=== PATIENT | female | born 1935 | race Caucasian/White ===

== ENCOUNTER 2016-11-12 14:21 | Inpatient (IN) | payer MEDICARE ==
[~2016-11-12] VITALS: Ht 149.9 cm; Wt 77.1 kg
[~2016-11-12 14:21] MED LIST: CEPH-512 PO; LACT10SO PO
[2016-11-12 14:33] VITALS: BP 153/72; PULSE 102; RESP 24; O2SAT 96
--- NOTE | 2016-11-12 16:17 | ED.REPORT ---
HPI-General Illness Date of Service Nov 12, 2016 ED Provider: Devan Francois MD Pt is a 81 y/o female w/ a hx of well-controlled schizophrenia, HTN, HLD, depression, presenting to the ED via EMS with her daughter due to generalized weakness and possible fall which occurred today. The patient does not know why she is here and is asymptomatic. The patient spoke with her daughter last night normally. This morning, her daughter called but didn't answer. She tried to call again around 14:00 but she didn't answer again. She went over to find the patient sitting on her bed. She said that she had fallen between a night stand and her bed. She was a bit more confused than normal. She was very shaky when she helped her stand and therefore an ambulance was called. The patient also hasn't taken her medications since Monday and she usually takes these as directed. The patient normally ambulates with a cane and does not have a history of instability or falls. Most of history obtained via the daughter. CODE STATUS: has not been discussed Nursing Notes Stated Complaint: WEAKNESS Chief Complaint: General Complaint Nursing Notes Reviewed: Yes Allergies: Coded Allergies: No Known Allergies (Verified , 04/28/06) Scheduled Cephalexin (Keflex) 500 Mg Capsule 250 MG PO QID Lactulose (Lactulose) 10 Gm/15 Ml Solution 10 GM PO ACHS 2-3 times a day, titrate to 2-3 soft bowel movements daily General Time Seen by MD: 15:55 Chief Complaint Weakness Hx Obtained From: Patient, Daughter, EMS Arrived By: Ambulance Sudden in Onset?: No Onset Occurred: 5 - 8 hours ago Symptom Duration: Since onset Severity: Current: No pain currently Severity: Maximum: No pain Similar Sx Previous: No Past Medical History Past Medical History Schizophrenia - well controlled Reports: Hyperlipidemia, Hypertension Reports: Depression Past Surgical History recent cataract surgery Smoking History Never Smoker Social History Other Social History: Good social support, Lives alone, Local resident Ambulatory Status Cane Review of Systems ROS limited due to mental status Full Review of Systems Constitutional: Reports: Weakness - generalized Neurologic: Reports: Confusion Complete sys rev & neg: except as marked. Physical Exam Vital Signs Vital Signs Date Time Temp Pulse Resp B/P Pulse Ox O2 Delivery O2 Flow Rate FiO2 11/12/16 17:24 36.7 93 22 146/68 100 Room Air 11/12/16 14:33 37.0 102 24 153/72 96 Room Air Initial VS: Reviewed, Vital signs abnormal Head / Eyes: Atraumatic, Normocephalic, PERRL ENT: Mucous membranes moist, Conjunctiva normal, No scleral icterus Neck: Supple, Non-tender, Full range of motion Respiratory: Breath sounds normal, Clear to auscultation, No respiratory distress Cardiovascular: Regular rate & rhythm, Heart sounds normal, Intact distal pulses Abdomen / GI: Soft, Non-tender Skin: Warm, Dry, No cyanosis General/Constitutional: Awake, Alert, No acute distress, Cooperative, Not toxic appearing Pleasantly confused No signs of intoxication or withdrawal Upper Extremities Upper Extremity / MS: Full range of motion, No swelling, Non-tender, No deformity, Neurologic intact, Vascular intact, No ligamentous injury, Tendon function NL Faint erythema over right elbow No clinical signs of fracture Lower Extremity / Pelvis / MS: Full range of motion, No swelling, Non-tender, No deformity, Neurologic intact, Vascular intact, No ligamentous injury, Tendon function NL Faint erythema over knees bilaterally No clinical signs of effusion or fracture Neurologic: Speech NL, No motor deficits, No sensory deficits Pleasantly confused No focal deficits Psychiatric: Affect NL, Mood NL Very limited insight Interpretation & Diagnostics Lab Results Interpretation Result Diagram: 11/12/16 1648 11/12/16 1648 Test 11/12/16 16:48 11/12/16 17:58 11/12/16 19:00 White Blood Count 17.5th/mm3 (3.8-10.1) Red Blood Count 4.55mil/mm3 (3.90-5.20) Hemoglobin 13.8g/dL (12.0-15.6) Hematocrit 40.8% (35.0-46.0) Mean Corpuscular Volume 89.7fL (81-100) Mean Corpuscular Hemoglobin 30.3pg (27.0-35.0) Mean Corpuscular Hemoglobin Concent 33.8% (32.0-37.0) Red Cell Distribution Width 12.7% (12.3-15.4) Platelet Count 233bil/L (150-400) Neutrophils (%) (Auto) 74.0% (40-74) Lymphocytes (%) (Auto) 9.6% (14-46) Monocytes (%) (Auto) 16.0% (4-12) Eosinophils (%) (Auto) 0% (0-5) Basophils (%) (Auto) 0.1% (0-3) Sodium Level 143mEq/L (134-144) Potassium Level 3.3mEq/L (3.5-5.2) Chloride Level 99mEq/L (97-108) Carbon Dioxide Level 21mmol/L (18-29) Blood Urea Nitrogen 38mg/dL (8-27) Creatinine 1.97mg/dL (0.57-1.00) Estimat Glomerular Filtration Rate 35mL/min (>59) Glucose Level 130mg/dL (60-99) Calcium Level 9.5mg/dL (8.5-10.1) Magnesium Level 2.3mg/dL (1.6-2.6) Total Bilirubin 0.6mg/dL (0.0-1.2) Aspartate Amino Transf (AST/SGOT) 831U/L (0-50) Alanine Aminotransferase (ALT/SGPT) 157U/L (0-32) Alkaline Phosphatase 86U/L (25-165) Total Protein 8.5g/dL (6.4-8.4) Albumin 4.5g/dL (3.4-5.0) Hold [place] Top Tube Received (Received) Urine Color Yellow (YELLOW) Urine Appearance Hazy (CLEAR,HAZY) Urine pH 6.5 (5.0-8.0) Urine Specific [place] 1.025 (1.003-1.035) Urine Protein 300mg/dL (NEG,TRACE) Urine Glucose (UA) 100mg/dL (NEGATIVE) Urine Ketones Tracemg/dL (NEGATIVE) Urine Occult Blood Large (NEGATIVE) Urine Nitrite Positive (NEGATIVE) Urine Bilirubin Negative (NEGATIVE) Urine Urobilinogen 1.0mg/dL (NORMAL) Urine Leukocyte Esterase Trace (NEGATIVE) Urine RBC 0-2/hpf (0-2) Urine WBC 0-5/hpf (0-5) Urine Epithelial Cells None/hpf (NONE-MOD) Urine Crystals None seen (NONE SEEN) Urine Bacteria Few/hpf (NONE-FEW) Urine Hyaline Casts None/lpf (NONE) Urine Granular Casts None seen (NONE SEEN) Urine Waxy Casts None seen (NONE SEEN) Urine Red Blood Cell Casts None seen (NONE SEEN) Urine White Blood Cell Casts None seen (NONE SEEN) Urine Mucus None seen (None Seen) Urine Trichomonas None seen (NONE SEEN) Urine Yeast None (NONE SEEN) Urinalysis Comment None Urine Culture Reflexed Indicated Total Creatine Kinase > 71018U/L (21-215) Troponin T 0.058ug/L (0.0-0.011) Lab Results Interpretation: Received positive leukocytosis CMP renal insufficiency, ALT abnormalities-new compared to 2016 Troponin #1 elevated UA pending Blood cultures pending ECG Interpretation ECG Interpretation: Sinus rhythm rate 97 Nonspecific T wave changes Probable LVH Time: 17:05 Interpreted by: ED physician Normal ECG Interpretation: No acute ischemic changes ECG Interpretation: Sinus rhythm rate 95 Repeat EKG nl Time: 18:12 Interpreted by: ED physician Normal ECG Interpretation: No acute ischemic changes X-Ray Chest Interpretation Chest Xray Interpretation: IMPRESSION: No acute disease. Dictated by: Thom Bolton M.D. on 11/12/2016 at 17:03 Approved by: Thom Bolton M.D. on 11/12/2016 at 17:04 View: Portable, 1 view Interpretation / Wet Read by: Interpret - Radiologist CT Head Interpretation IMPRESSION: No acute intracranial process. Dictated by: Thom Bolton M.D. on 11/12/2016 at 17:41 Approved by: Thom Bolton M.D. on 11/12/2016 at 17:44 Study: Head CT no contrast Interpretation / Wet Read by: Interpret - Radiologist Re-Eval/Medical Decision Med Decision/Clinical Course 81-year-old female he was not answering a phone calls from family members, came over and found her in her underwear having fallen. It is unclear exactly how long she been down. She had some redness or elbow knee. It did look like she had hit her head. She is more confused than usual. Furthermore while the patient lives independently, she she is responsible for medications such received in a blister pack-and is notable that the patient had not taken any of her medications over the past 5 days. On top of this when the family tried to get her up she is extremely unsteady, and that was a bit unusual-therefore 911 was called. The patient has no complaints, but is confused and cannot provide any useful history. There is some dementia, but this is somewhat worse. Workup was pursued here. No traumatic injuries were identified on workup. I do not appreciate clinical signs of fractures injury to extremities, but a brain CT was obtained negative. Blood work is notable for leukocytosis, initially troponin is elevated but is May difficulty his creatinine is elevated , and Achilles unclear.. EKG is without ischemic change. However at this point the plan is admission for continued evaluation and management-before meals overall initiating events remain a bit unclear, but the patient is altered, with renal insufficiency, normal LFTs abnormal troponin and is unsafe for discharge. Source of Hx: Old records Time of Eval: 17:04 Re-Evaluation/Progress Note: Pt rechecked. Informed pt of need for admission. Pt understands and agrees with plan for admission. All questions addressed. Consultation : Referral / Consult Name: Chucky Herrera MD Call Returned at: 19:20 Runner Out: Will see patient, Agrees with eval, Agrees with plan, Accepts admit Counseled Regarding: Diagnosis, Lab results, Need for admission Discharge & Departure Primary Impression: Altered mental status Altered mental status type: unspecified Qualified Code: R41.82 - Altered mental status, unspecified Additional Impressions: Generalized weakness Fall Encounter type: initial encounter Qualified Code: W19.XXXA - Unspecified fall, initial encounter Acute kidney injury Abnormal liver function tests Elevated troponin Disposition: ADMITTED TO HOSPITAL (ERASED) Discharge Condition All VS Reviewed: Yes Condition: Stable Referrals: Derian King MD (PCP) Scribe Attestation Portions of this note were transcribed by Jordan Jeter. I, Dr. Francois personally performed the history, physical exam and medical decision-making; I reviewed and confirmed the accuracy of the information in the transcribed note. copies to: Derian King MD, Matthew F MD Nov 12, 2016 16:17 JORDAN JETER Nov 12, 2016 16:24 Ifrah Saucedo Nov 12, 2016 22:09
[2016-11-12 17:05] LABS: BASOPHILS % (AUTO) 0.1 % (0-3); EOSINOPHILS % (AUTO) 0 % (0-5); Mean Corpuscular Hemoglobin 30.3 pg (27.0-35.0); Mean Corpuscular Volume 89.7 fL (81-100); Platelet Count 233 bil/L (150-400)
--- NOTE | 2016-11-12 17:06 | DRSVH ---
PROCEDURE: X-RAY CHEST ONE VIEW, PORTABLE ([id number]) INDICATIONS: Fall, weakness TECHNIQUE: One view of the chest was acquired. COMPARISON: None. FINDINGS: Surgical changes and devices: None. Lungs and pleura: No pleural effusions or pneumothorax. Lungs are clear. Low lung volumes. Promine nt right perihilar opacity likely pulmonary mass which are Mediastinum: Mediastinal contours appear normal. Heart size is normal. Bones and chest wall: No suspicious bony lesions. Overlying soft tissues appear unremarkable. IMPRESSION: No acute disease. Dictated by: Thom Bolton M.D. on 11/12/2016 at 17:03 Approved by: Thom Bolton M.D. on 11/12/2016 at 17:04
[2016-11-12 17:24] VITALS: BP 146/68; PULSE 93; RESP 22; O2SAT 100
[2016-11-12 17:44] LABS: Magnesium 2.3 mg/dL (1.6-2.6)
[2016-11-12 17:46] LABS: TROPONIN T 0.05 ug/L (0.0-0.011)
--- NOTE | 2016-11-12 17:46 | DRSVH ---
PROCEDURE: CT BRAIN WITHOUT CONTRAST ([id number]) INDICATIONS: fall, confusion TECHNIQUE: Noncontrast 4.5 mm thick angled axial sections acquired from the foramen magnum to the vertex, with c oronal reformats. COMPARISON: None. FINDINGS: Image quality: Excellent. CSF spaces: Basal cisterns are patent. No extra-axial fluid collections. The ventricles are symmet gabe in size and shape. Brain: No intracranial bleeds or masses. There is cerebral volume loss for age, with resultant vent ricular and sulcal prominence. There are periventricular and deep white matter chronic small vessel ischemic changes. There is intracranial internal carotid artery atherosclerosis. Skull and face: Calvarium and visualized facial bones appear intact, without suspicious lesions. Sinuses: Visualized sinuses and mastoids are clear. IMPRESSION: No acute intracranial process. Dictated by: Thom Bolton M.D. on 11/12/2016 at 17:41 Approved by: Thom Bolton M.D. on 11/12/2016 at 17:44
[2016-11-12] MEDS ORDERED: Ondansetron 2 mg/mL 2 mL Inj IVPUSH PRN ×2 (18:15→20:35)
[2016-11-12] MEDS ORDERED: 0.9% Sodium Chloride 1,000 ML IV ONE (18:15)
[2016-11-12] MEDS ORDERED: Alum-Mag Hydrox-Simeth 30 mL Suspension PO PRN ×2 (18:15→20:35)
[2016-11-12 18:31] LABS: APPEARANCE,URINE HAZY (CLEAR,HAZY); COLOR,URINE YELLOW (YELLOW); OCCULT BLOOD,URINE LARGE (NEGATIVE); PH,URINE 6.5 (5.0-8.0)
[2016-11-12 19:40] LABS: TROPONIN T 0.058 ug/L (0.0-0.011)
[2016-11-12 20:00] LABS: Creatine Kinase > 17000 U/L (21-215)
[2016-11-12 20:29] VITALS: BP 129/59; PULSE 88; RESP 20; O2SAT 100
[2016-11-12] MEDS ORDERED: Polyethylene Glycol (PEG) 17 Gm Powder PO PRN (20:35)
[2016-11-12 20:37] VITALS: BP 129/59; PULSE 88; RESP 20; O2SAT 100
[2016-11-12 21:13] VITALS: BP 146/76; PULSE 103; RESP 16; O2SAT 99
--- NOTE | 2016-11-12 21:29 | PCM.HPMED ---
Subjective Date of Service Nov 12, 2016 Primary Provider: Admitting Physician: Chucky Herrera MD Primary Care Physician: Derian King MD Attending Physician: Chucky Herrera MD Admit Status: From the Emergency Department, Full Admit Chief Complaint: generalized weakness, confusion, and a fall History of Present Illness: Pamella Starks is a 81 year old female patient with history of well-controlled schizophrenia, hypertension, hyperlipidemia and depression who presented to the emergency department via ambulance because of generalized weakness, confusion, and a fall. Patient does not recall the events leading to the incident but her daughter reports that family members were attempting to call her this morning and she was not answering their calls. As a result, they came to visit her at her senior apartment building and found her between the bed and the nightstand. She was able to sit on the bed with great difficulty and with assistance. Daughter reports that she was unsteady, dizzy and shaky. In addition, patient was confused and unaware of what was happening. Family did not notice her slurring her words or having unilateral weakness. She thinks that she hit her head on the carpet on the floor when she fell that she was unsure. She lives by herself in an independent living facility and typically uses a cane for walking but is steady at baseline. The family also noticed that she has not taken probably about 5 days' worth of her medications. She normally has her daily medications packaged and labeled for her. Patient does not recall the last time she took her medications and is unsure if she ate today. The last time that her daughter visited her in person was about 2-3 days ago but they were able to call her yesterday with response. Family reports that she has had similar episodes of confusion in the past. This evening, she notes that she is less confused but that her upper and lower extremities are still weak. She denies numbness, tingling, muscle aches. Patient denies fevers, chills, headaches, chest pain, shortness of breath, nausea, vomiting, abdominal pain, dysuria, urinary frequency and urgency, and bowel changes. In the ED, her vital signs include blood pressure 153/72, pulse of 102, temperature 37C, and 96% O2 sat at room air. Her labs were significant for a WBC count of 17.5, B UN of 38, creatinine 1.97, troponin of 0.5, AST 831, ALC 157, CK greater than 17,000. UA reveals positive nitrites, trace leukocyte esterase, large occult blood, and 0-2 RBCs. Chest x-ray showed no acute disease. CT of the head is negative. EKG showed normal sinus rhythm with no acute ischemic changes. She was given IV fluids. Her PCP is Dr. King at [facility] Review of Systems: The comprehensive review of systems was conducted with the patient and found to be negative except as above in the history of present illness. Allergies Coded Allergies: No Known Allergies (Verified , 04/28/06) Home Medications Aripiprazole 10 mg 1 tab in am, Felodipine 10 mg 1 tab in am, Atenolol 100 mg, Losartan 100 mg, Lovastatin 20 mg 1 at bedtime, HCTZ 12.5 mg 1 tab in am, Nortriptyline 10 mg PMH Schizophrenia, hypertension, hyperlipidemia, depression Surgical History Bilateral cataracts Family History Family history of coronary artery disease Social History Hx Alcohol Use: No Hx Substance Use: No Hx Tobacco Use: No Smoking Status: Never Smoker Living Arrangement: Other (independently at a senior assisted living) Exam Vital Signs Vital Sign - Last Date Time Temp Pulse Resp B/P Pulse Ox O2 Delivery O2 Flow Rate FiO2 11/12/16 20:37 36.7 88 20 129/59 100 Room Air Exam General: Patient is lying on bed, AAOX3, not in acute distress. she is cooperative and pleasant. HEENT: head normocephalic and atraumatic, PERRLA, EOMI, no scleral icterus, skin pale in complexion compared to baseline Neck: neck supple, non-tender, no lymphadenopathy, trachea midline CV: regular rate and rhythm, s1 and s2 heard, no murmur, radial pulses 2+ and equal bilaterally, no rubs murmurs or gallops, trace pitting edema of lower extremities bilaterally Lungs: Clear to auscultation bilaterally, no wheezes, rales or rhonchi, no increased work of breathing Abdomen: normoactive bowel sounds on 4Q, soft, non-tender to palpation, no organomegally Skin: redness on elbows and knees bilaterally Musculoskeletal: 3/5 UE and LE strength bilaterally, pedal pulses non-palpable, feet were cold to touch Neuro: Grossly neurologically intact, has generalized weakness, normal speech, sensation intact Psych: Pleasant and cooperative female Lab and Diagnostics Labs Laboratory Tests Test 11/12/16 17:58 Urine Color Yellow Urine Appearance Hazy Urine pH 6.5 Urine Specific [place] 1.025 Urine Protein 300mg/dL Urine Glucose (UA) 100mg/dL Urine Ketones Tracemg/dL Urine Occult Blood Large Urine Nitrite Positive Urine Bilirubin Negative Urine Urobilinogen 1.0mg/dL Urine Leukocyte Esterase Trace Urine RBC 0-2/hpf Urine WBC 0-5/hpf Urine Epithelial Cells None/hpf Urine Crystals None seen Urine Bacteria Few/hpf Urine Hyaline Casts None/lpf Urine Granular Casts None seen Urine Waxy Casts None seen Urine Red Blood Cell Casts None seen Urine White Blood Cell Casts None seen Urine Mucus None seen Urine Trichomonas None seen Urine Yeast None Urinalysis Comment None Urine Culture Reflexed Indicated Laboratory Tests Test 11/12/16 16:48 11/12/16 17:58 11/12/16 19:00 White Blood Count 17.5th/mm3 (3.8-10.1) Red Blood Count 4.55mil/mm3 (3.90-5.20) Hemoglobin 13.8g/dL (12.0-15.6) Hematocrit 40.8% (35.0-46.0) Mean Corpuscular Volume 89.7fL (81-100) Mean Corpuscular Hemoglobin 30.3pg (27.0-35.0) Mean Corpuscular Hemoglobin Concent 33.8% (32.0-37.0) Red Cell Distribution Width 12.7% (12.3-15.4) Platelet Count 233bil/L (150-400) Neutrophils (%) (Auto) 74.0% (40-74) Lymphocytes (%) (Auto) 9.6% (14-46) Monocytes (%) (Auto) 16.0% (4-12) Eosinophils (%) (Auto) 0% (0-5) Basophils (%) (Auto) 0.1% (0-3) Sodium Level 143mEq/L (134-144) Potassium Level 3.3mEq/L (3.5-5.2) Chloride Level 99mEq/L (97-108) Carbon Dioxide Level 21mmol/L (18-29) Blood Urea Nitrogen 38mg/dL (8-27) Creatinine 1.97mg/dL (0.57-1.00) Estimat Glomerular Filtration Rate 35mL/min (>59) Glucose Level 130mg/dL (60-99) Calcium Level 9.5mg/dL (8.5-10.1) Magnesium Level 2.3mg/dL (1.6-2.6) Total Bilirubin 0.6mg/dL (0.0-1.2) Aspartate Amino Transf (AST/SGOT) 831U/L (0-50) Alanine Aminotransferase (ALT/SGPT) 157U/L (0-32) Alkaline Phosphatase 86U/L (25-165) Troponin T 0.050ug/L (0.0-0.011) 0.058ug/L (0.0-0.011) Total Protein 8.5g/dL (6.4-8.4) Albumin 4.5g/dL (3.4-5.0) Hold [place] Top Tube Received (Received) Urine Color Yellow (YELLOW) Urine Appearance Hazy (CLEAR,HAZY) Urine pH 6.5 (5.0-8.0) Urine Specific [place] 1.025 (1.003-1.035) Urine Protein 300mg/dL (NEG,TRACE) Urine Glucose (UA) 100mg/dL (NEGATIVE) Urine Ketones Tracemg/dL (NEGATIVE) Urine Occult Blood Large (NEGATIVE) Urine Nitrite Positive (NEGATIVE) Urine Bilirubin Negative (NEGATIVE) Urine Urobilinogen 1.0mg/dL (NORMAL) Urine Leukocyte Esterase Trace (NEGATIVE) Urine RBC 0-2/hpf (0-2) Urine WBC 0-5/hpf (0-5) Urine Epithelial Cells None/hpf (NONE-MOD) Urine Crystals None seen (NONE SEEN) Urine Bacteria Few/hpf (NONE-FEW) Urine Hyaline Casts None/lpf (NONE) Urine Granular Casts None seen (NONE SEEN) Urine Waxy Casts None seen (NONE SEEN) Urine Red Blood Cell Casts None seen (NONE SEEN) Urine White Blood Cell Casts None seen (NONE SEEN) Urine Mucus None seen (None Seen) Urine Trichomonas None seen (NONE SEEN) Urine Yeast None (NONE SEEN) Urinalysis Comment None Urine Culture Reflexed Indicated Total Creatine Kinase > 50457I/L (21-215) Microbiology 11/12/16 Blood Culture, Received Pending 7/29/17 Urine Culture, Received Pending Result Diagram: 11/12/16 1648 11/12/16 1648 X-Rays, CTs and MRIs X-Ray Chest Interpretation Chest Xray Interpretation: IMPRESSION: No acute disease. Dictated by: Thom Bolton M.D. on 11/12/2016 at 17:03 Approved by: Thom Bolton M.D. on 11/12/2016 at 17:04 View: Portable, 1 view Interpretation / Wet Read by: Interpret - Radiologist CT Head Interpretation IMPRESSION: No acute intracranial process. Dictated by: Thom Bolton M.D. on 11/12/2016 at 17:41 Approved by: Thom Bolton M.D. on 11/12/2016 at 17:44 Study: Head CT no contrast Interpretation / Wet Read by: Interpret - Radiologist 12-lead ECG ECG Interpretation: Sinus rhythm rate 95 Repeat EKG nl Time: 18:12 Interpreted by: ED physician Normal ECG Interpretation: No acute ischemic changes Assessment & Plan Pamella Starks is a 81 year old female patient who has been non-compliant with her medications with history of well-controlled schizophrenia, hypertension, hyperlipidemia and depression who presented to the emergency department via ambulance because of generalized weakness, confusion and falls. She is being admitted for rhabdomyolysis secondary to her fall and acute kidney injury secondary to dehydration. 1. Rhabdomyolysis, present on admission Likely secondary to prolonged time on the floor following her fall - CK >17,000 - Start IV fluid resuscitation at 150 ml/hr - Order physical therapy 2. Acute kidney injury, present on admission Likely pre-renal secondary to dehydration and rhabdomyolysis -Creatinine today is 1.97. Baseline 0.66 in 2016 -Start IV fluid resuscitation at 150 ml/hr 3. Leukocytosis likely secondary to UTI, present on admission -WBC count 17.5, UA showed positive nitrites and trace leukocyte esterase -We will treat UTI with IM ceftriaxone 1 g daily 4. Elevated liver function tests, acute, present on admission Likely due to rhabdomyolysis -Treat the rhabdo with fluid resuscitation - Ordered a hepatitis panel and acetaminophen level to rule out other causes if elevated LFTs 5.Elevated troponins, present on admission -Flat X2 0.05, and 0.058, no evidence of acute ischemia on EKG X2 -Ordered a third troponin - Troponin is likely elevated due to COLTON 6. Hypertension, chronic, present on admission -Continue home dose of felodipine 10 mg and atenolol 100 mg daily -We will hold losartan and hydrochlorothiazide 7. History of schizophrenia, stable -Continue aripiprazole 10 mg daily and nortriptyline 10 mg daily 8. Hyperlipidemia, chronic -We will hold statins due to rhabdomyolysis CODE STATUS: Full code DVT prophylaxis: Subcutaneous heparin, SCD Bowel regimen when necessary Patient status: Patient is admitted under inpatient status expected length of stay greater than 2 midnights due to severity of presenting symptoms, risk of adverse events, and complexity of treatment plan. Pain Evaluation: Adequate Pain Control VTE Prophylaxis: Sub-Q Heparin (Unfractionated), SCDs VTE Mechanical Devices: Intermittant Pneumatic CD Resuscitation Status: CPR: Attempt Resuscitation Attending Statement The patient was seen and examined together with Dr. Sewell on 11/12 and I agree with the history, exam and plan as outlined in the note above. Carmela Sewell DO Nov 12, 2016 21:29 Chucky Herrera MD Nov 13, 2016 00:17
[2016-11-12] MEDS: 0.9% Sodium Chloride 1,000 ML IV SCH (21:55)
[2016-11-12] MEDS ORDERED: ATEN100T PO (22:12)
[2016-11-12] MEDS ORDERED: ARIP10TA16 PO (22:12)
[2016-11-12] MEDS ORDERED: LOSA100T29 PO (22:12)
[2016-11-12] MEDS ORDERED: LOVA20TA PO (22:12)
[2016-11-12] MEDS ORDERED: HYDR12.55 PO (22:12)
[2016-11-12] MEDS ORDERED: FELO10TA3 PO (22:12)
[2016-11-12] MEDS ORDERED: NORT10CA PO (22:12)
[2016-11-12] MEDS: cefTRIAXone Inj 1,000 MG in Dextrose 5% Minibag Plus 50 ML IV SCH (22:52)
[2016-11-12] MEDS: Felodipine 5 mg ER24 Tablet PO SCH (23:40)
[2016-11-12] MEDS: ARIPiprazole 10 mg Tablet PO SCH (23:40)
[2016-11-12] MEDS: Heparin 5,000 Unit/mL Inj SUBQ SCH (23:44)
[2016-11-13] VITALS (8 sets, daily range): BP systolic 104–113; BP diastolic 57–70; PULSE 58–95; RESP 16–18; O2SAT 95–98
--- NOTE | 2016-11-13 05:42 | NUR ---
Admit PT received from ED around 2129 last reinaldo. PT accompanied by daughter and g.daughter. Daughter was unable to reach mom by phone and went to her apt and PT was found down between her bed and nightstand. PT was unsure how long she had been lying on the floor. PT was reportedly confused and extremely weak. [facility] brought her to the ED. HEad CT was negative per report. When PT arrived to floor she was oriented and appropriate. PT has remained this way all night. PT did refuse to get OOB and has been using the bedpan as she reports she is too weak to get up. Pt placed on tele for her elevated trop's and COLTON. Rhabdo also part of diagnosis. PT denies any CP. PT is a little dissheveled in appearance. PT is receving large saline hydration at this time. Voided only small amount of urine. PT is a very difficult IV stick and IV in L a/c was placed with US. Blood had to be drawn from pt foot after multiple attempts by phlebotomy that were unsuccessful. Skin is grossly intact. A few scattered bruises were noted. PT did have some random flushing of her skin when she arrived to the floor, but this has since resolved over night. PT is awake right now eating toast. NO swallowing issues present. PT also being treated for UTI. WIll continue with current POC and monitor labs. PT will evaluate strength and mobility. PT currently lives independently. IT should also be noted that when daughter came to her house she found that the PT had not taken any of her meds for about 6 days which is something that "never happens" per daughter. MEds restarted last reinaldo.
[2016-11-13] MEDS: 0.9% Sodium Chloride 1,000 ML IV SCH ×3 (05:54→15:13)
[2016-11-13] MEDS: Heparin 5,000 Unit/mL Inj SUBQ SCH ×2 (08:41→16:30)
[2016-11-13] MEDS: Felodipine 5 mg ER24 Tablet PO SCH (08:41)
[2016-11-13] MEDS: ARIPiprazole 10 mg Tablet PO SCH (08:41)
--- NOTE | 2016-11-13 12:39 | NUR ---
Evaluation completed. Please go to "Notes" then click on "Assessments and Notes" (bottom left corner of screen). Then select appropriate discipline tab on top of screen.
[2016-11-13] MEDS ORDERED: Potassium Chloride 20 mEq SR Tablet PO ONE (16:00)
--- NOTE | 2016-11-13 16:51 | PCM.PNMED ---
Subjective Date of Service Nov 13, 2016 Subjective Patient is seen and examined in the presence of daughter and granddaughter. Their questions are answered. Patient has a flat affect has some memory deficits it. She is not oriented to time but oriented to place and person. Patient apparently did not have any prior history of cardiac disease. Patient' s family says her flat affect is new, and patient's delayed responses are new. Patient denies any recent infections or fevers or chills she states that she did not have a good appetite and not drinking much water.. Patient is also in the process of getting her teeth taken out according to daughter. No new medications Family states that patient was doing okay independently, people were checking on her until yesterday before william fell on the floor this morning, patient was subsequently able to get up and sit on a different bed. According to her daughter, no recent medication changes to explain patient's symptoms Exam Vital Signs Vital Sign - Last Date Time Temp Pulse Resp B/P Pulse Ox O2 Delivery O2 Flow Rate FiO2 11/13/16 15:40 71 11/13/16 15:09 36.7 17 106/69 98 Room Air Intake and Output 11/12/16 11/12/16 11/13/16 Cumulative From/Thru 15:00 23:00 07:00 11/12/16 14:33 - 11/13/16 06:28 Intake Total 1000 ml 1655 ml 2655 ml Output Total 450 ml 450 ml Balance 1000 ml 1205 ml 2205 ml Intake Oral 600 ml 600 ml IV Total 1000 ml 1055 ml 2055 ml Output Urine Total 450 ml 450 ml # Bowel Movements 0 0 Exam Gen.: Patient appears to have that delayed responses, and flat affect, she is cooperative and following commands however HEENT: Normocephalic atraumatic, poor dentition, halitosis Lungs: Clear to auscultation no crackles or wheezes Heart: No S3-S4 murmurs, regular rate and rhythm Abdomen soft nontender to palpation, both sounds Extremities 1+ pitting edema bilaterally Musculoskeletal strength is decreased in the left drip and also left lower extremity Neurological: CN II grossly normal, did not tolerate light in eyes. Remarkable for delayed responses, she missed one visual field on the right side, she is able to perform [id number] but however she missed mendoza on the right side, alternative hands test showed no deficits, Romberg's showed bilateral arm drift LE reflexes are equal and symmetric Psychiatric: Flat affect IVs and Medications Medications Reviewed: Medications were reviewed in detail Lab and Diagnostics Result Diagram: 11/12/16 1648 11/12/16 1648 X-Rays, CTs and MRIs X-Ray Chest Interpretation Chest Xray Interpretation: IMPRESSION: No acute disease. Dictated by: Thom Bolton M.D. on 11/12/2016 at 17:03 Approved by: Thom Bolton M.D. on 11/12/2016 at 17:04 View: Portable, 1 view Interpretation / Wet Read by: Interpret - Radiologist CT Head Interpretation IMPRESSION: No acute intracranial process. Dictated by: Thom Bolton M.D. on 11/12/2016 at 17:41 Approved by: Thom Bolton M.D. on 11/12/2016 at 17:44 Study: Head CT no contrast Interpretation / Wet Read by: Interpret - Radiologist 12-lead ECG ECG Interpretation: Sinus rhythm rate 95 Repeat EKG nl Time: 18:12 Interpreted by: ED physician Normal ECG Interpretation: No acute ischemic changes Assessment & Plan Pamella Starks is a 81 year old female patient who has been non-compliant with her medications with history of well-controlled schizophrenia, hypertension, hyperlipidemia and depression who presented to the emergency department via ambulance because of generalized weakness, confusion and falls. She is being admitted for rhabdomyolysis secondary to her fall and acute kidney injury secondary to dehydration. Dizziness: Patient independent admission MRA to rule out stroke, echocardiogram, orthostatics Syncope/Fall, POA -- No one knows exactly why or how she fell -- CT Head neg for acute bleeding -- she does have neurological sxs based on her physical exam -- MR Stroke protocol, US Echo, orthostatics, bladder scan -- UA pos, monitor urine cx -- treat the UTI -- PT/OT/ST Acute UTI, poa active -- Leukocytosis likely due to uti -- Cont ceftriaxone IV -- monitor cx Acute kidney injury, present on admission Likely pre-renal secondary to dehydration and rhabdomyolysis -Creatinine today is 1.97. Baseline 0.66 in 2016 -IV fluid hydration is given -- FE urea tests are ordered to determine the etiology -- NSS 30 mL/h Rhabdomyolysis, present on admission Likely secondary to prolonged time on the floor following her fall - CK >17,000 - Discontinued fluids: 30 cc/hr TKO - Order physical therapy Elevated liver function tests, acute, present on admission Likely due to rhabdomyolysis -Treat the rhabdo with fluid resuscitation - Ordered a hepatitis panel and acetaminophen level to rule out other causes if elevated LFTs, tylenol level neg Elevated troponins, present on admission - Troponin is likely elevated due to COLTON -- It seems like she is leveling off at 0.06, this could be due to renal dysfunction as she has no other active cardiological symptoms Hypertension, chronic, present on admission -Continue home dose of felodipine 10 mg and atenolol 100 mg daily -We will hold losartan and hydrochlorothiazide due to renal dysfunction History of schizophrenia, stable -Continue aripiprazole 10 mg daily and nortriptyline 10 mg daily Hyperlipidemia, chronic -We will hold statins due to rhabdomyolysis CODE STATUS: Full code DVT prophylaxis: Subcutaneous heparin, SCD Bowel regimen when necessary Patient status: Patient is admitted under inpatient status expected length of stay greater than 2 midnights due to severity of presenting symptoms, risk of adverse events, and complexity of treatment plan. Family is requesting for patient to get home care intermediate care nursing VTE Prophylaxis: Sub-Q Heparin (Unfractionated), SCDs VTE Mechanical Devices: Intermittant Pneumatic CD Resuscitation Status: CPR: Attempt Resuscitation Time spent 30 minutes Nara Musa DO Nov 13, 2016 16:51
--- NOTE | 2016-11-13 18:29 | NUR ---
Urinary retention/Heparin Patient is positive for UTI, incontinent of urine with dribbling throughout day shift which is not baseline for her. Strong odor noted and yellow/green discharge. After attempting toileting again this evening, bladder scan performed with 630cc retained. In and out catheter effective with 650cc dark urine out. María care provided. Heparin not given at 1630 d/t 's stroke concern.
[2016-11-13] MEDS: cefTRIAXone Inj 1,000 MG in Dextrose 5% Minibag Plus 50 ML IV SCH (22:00)
[2016-11-14] VITALS (10 sets, daily range): BP systolic 116–149; BP diastolic 75–105; PULSE 66–80; RESP 16–22; O2SAT 96–98
[2016-11-14] MEDS: Heparin 5,000 Unit/mL Inj SUBQ SCH ×3 (01:25→17:38)
--- NOTE | 2016-11-14 04:49 | NUR ---
UTI/Confusion Pt is confused, feels stuck in bed and like her legs 'don't work'. Able to SNYDER and follow commands, she appears weak and lethargic and confused about the situation. Generalized edema noted. Incontinent of urine, voiding small amounts when placed on the bedpan- post void residual of 216. Denies SOB and chest pain. IVF of 30ml/h tko. Care continues
[2016-11-14] MEDS ORDERED: 0.9% Sodium Chloride 1,000 ML IV SCH (07:30)
[2016-11-14 08:11] LABS: Hepatitis A Antibody IgM Negative (Negative); Hepatitis B Core Antibody IgM Negative (Negative)
[2016-11-14 08:36] LABS: Mean Corpuscular Hemoglobin 30.5 pg (27.0-35.0); Mean Corpuscular Volume 88.8 fL (81-100)
[2016-11-14] MEDS: Felodipine 5 mg ER24 Tablet PO SCH (08:57)
[2016-11-14] MEDS: ARIPiprazole 10 mg Tablet PO SCH (08:57)
--- NOTE | 2016-11-14 09:46 | NUR ---
Evaluation completed. Please go to "Notes" then click on "Assessments and Notes" (bottom left corner of screen). Then select appropriate discipline tab on top of screen.
[2016-11-14] MEDS: Nystatin 100,000 Unit/Gm 15 Gm Powder TOPICAL SCH ×2 (11:14→20:20)
--- NOTE | 2016-11-14 13:36 | DRSVH ---
PROCEDURE: MRA ANGIOGRAM HEAD WITHOUT CONTRAST ([id number]) INDICATIONS: DELAYED RESPONSES TECHNIQUE: Noncontrast axial 3-D [id number] MR angiogram, with 3-dimensional maximum intensity projection (M IP) reformats of the internal carotid arteries and posterior circulation then performed. COMPARISON: None. FINDINGS: Image quality: Mildly limited by motion artifact. Anterior circulation: Intracranial internal carotid arteries demonstrate normal size and intralumina l flow signal. The flow within the paired anterior cerebral arteries is normal and symmetric. The f low within the middle cerebral arteries is normal and symmetric. The anterior communicating artery i s seen. No stenoses, occlusions, or aneurysms. Posterior circulation: Visualized portions of the vertebral arteries demonstrate normal caliber, and join to form a normal appearing basilar artery. The flow within the posterior cerebral arteries is normal and symmetric. No stenoses, occlusions, or aneurysms. IMPRESSION: Negative examination within the limitations caused by motion artifact. Dictated by: Sharri Peters MD, PhD on 11/14/2016 at 13:29 Approved by: Sharri Peters MD, PhD on 11/14/2016 at 13:34
--- NOTE | 2016-11-14 14:01 | DRSVH ---
PROCEDURE: MRI BRAIN WITHOUT CONTRAST ([id number]) INDICATIONS: Delayed responsiveness, r/o acute cva TECHNIQUE: Non-contrast axial T1 spin echo, axial T2 fast spin echo, sagittal and axial FLAIR, coronal T2 fast s pin echo, axial gradient echo, axial diffusion and ADC through the brain. COMPARISON: [facility], CT, CT BRAIN WO CON, 10/27/2015, 11:57. [facility], MR, MR ANGIO HEAD WO CON, 11/14/2016, 13:09. [facility], CT, CT BRAIN WO CON, 11/12/2016, 17:14. FINDINGS: Image quality: Limited by patient motion artifact. CSF spaces: Ventricles appear symmetric in size and shape. Diffuse prominence of CSF space noted. B giuliana cisterns are patent. No extra-axial fluid collections. Brain: No intracranial bleeds. Small, approximately 1 cm diameter lesion which is isointense on T1, isointense on T2 and hyperintense on FLAIR images is noted in the left lateral ventricle. There is ce rebral volume loss for age. There are moderate periventricular and deep white matter chronic small v essel ischemic changes. Brainstem appears normal. Small focus of restricted diffusion noted in the p osterior right frontal lobe compatible with acute/subacute infarct. No susceptibility weighted abnorm alities are identified in the brain parenchyma. There are no areas of encephalomalacia. No chronic is chemic insults. Normal intravascular flow voids are present. Skull and face: Calvarial bone marrow is normal in signal. Orbits are normal. Sinuses: Sinuses and mastoids are clear. IMPRESSION: 1. Small acute size subacute posterior right frontal infarct. 2. Moderate periventricular and subcortical white matter chronic microvascular ischemic changes. 3. Mild, diffuse volume loss. 4. 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 Likely diagnostic consideration s include subependymoma, central neurocytoma and ependymoma. Recommend gadolinium enhanced MRI for fu rther characterization of the lesion. Dictated by: Sharri Peters MD, PhD on 11/14/2016 at 13:39 Approved by: Sharri Peters MD, PhD on 11/14/2016 at 13:59
--- NOTE | 2016-11-14 15:10 | NUR ---
Social Work: Initial Assessment/Readiness for Discharge/Multi-Disciplinary Rounds D: EMR reviewed. Please see Initial Assessment linked to this note for more information. Pt is a 81 y/o female admitted for general weakness, acute kidney injury per H&P. Pt has a readmit risk score of 4. EWA placed T/C to pt's daughter/DPOA Nyasia Rojas to conduct initial assessment, per pt's request. SW explained role and provided phone number. SW also wrote phone number on white board. SW left "Your Discharge Planning Checklist" in pt's room and encouraged Nyasia to contact EWA for any discharge planning questions. Pt's insurance is [employer] and PCP is Derian King MD. Per pt's daughter, [facility] [place] where she receives help from family. SW received order for RN PT OT 3x/week. SW discussed agencies contracted with pt's insurance. Pt's daughter did not have a preference. SW selected [facility] per [facility] rotating vendor calendar. Pt's daughter agreeable. Pt's daughter requested application for [facility] and [facility]. SW to follow-up with pt's daughter with resources for DSHS application and [facility] caregiver. Pt's daughter agreeable to plan. SW discussed DPOA/advanced directive ppw - pt's daughter requested ppw to complete. SW informed daughter that SW will leave DPOA ppw, "Your Discharge Planning Checklist," and choice list in pt's room on window ledge. Daughter agreeable and will pick-up ppw and review when she gets off work today. Pt's daughter stated that pt is independent but homebound - pt only leaves with her daughter because she does not drive. Pt's daughter states pt has a hx of schizophrenia diagnosed as a young child but pt has managed her diagnosis and has been stable for years. Pt owns a cane but only uses occasionally. A: Pt for whom HH RN PT OT 3x/week has been deemed medically necessary. P: SW made referral to Shreya at [facility]/provided access. SW to follow-up with pt regarding DSHS/TRIS[facility] application. SW to have MD complete F2F tomorrow. SW will continue to follow for needs. ROSANNA James Addendum: 11/14/16 at 1536 by DEEPAK EDUARDO SS Amended: Links added.
--- NOTE | 2016-11-14 16:49 | PCM.PNMED ---
Subjective Date of Service Nov 14, 2016 Subjective Patient is looking much better , states that she has been incontinent for a week and does not know why. Mental status has improved, she talked about having two different studies done. She also said her family is worried because patient had trouble dressing herself. Exam Vital Signs Vital Sign - Last Date Time Temp Pulse Resp B/P Pulse Ox O2 Delivery O2 Flow Rate FiO2 11/14/16 13:23 36.8 69 19 135/88 97 Room Air Intake and Output 11/13/16 11/13/16 11/14/16 Cumulative From/Thru 15:00 23:00 07:00 11/12/16 14:33 - 11/14/16 06:06 Intake Total 2100 ml 550 ml 5305 ml Output Total 1250 ml 200 ml 1900 ml Balance 850 ml 350 ml 3405 ml Intake Oral 600 ml 200 ml 1400 ml IV Total 1500 ml 350 ml 3905 ml Output Urine Total 1250 ml 200 ml 1900 ml # Bowel Movements 0 0 0 Exam Gen.: Patient appears to have that delayed responses, and flat affect, she is cooperative and following commands however HEENT: Normocephalic atraumatic, poor dentition, halitosis Lungs: Clear to auscultation no crackles or wheezes Heart: No S3-S4 murmurs, regular rate and rhythm Abdomen soft nontender to palpation, both sounds Extremities 1+ pitting edema bilaterally Musculoskeletal strength is decreased in the left multiple drill operator and also left lower extremity Neurological: CN II grossly normal, did not tolerate light in eyes. Remarkable for delayed responses, she missed one visual field on the left side, she is able to perform [id number] but however she missed mendoza on the left side, alternative hands test showed no deficits LE reflexes are equal and symmetric Psychiatric: Improved behavior, better eye contact IVs and Medications Medications Reviewed: Medications were reviewed in detail Lab and Diagnostics Result Diagram: 11/14/1682911/14/16 0830 X-Rays, CTs and MRIs X-Ray Chest Interpretation Chest Xray Interpretation: IMPRESSION: No acute disease. Dictated by: Thom Bolton M.D. on 11/12/2016 at 17:03 Approved by: Thom Bolton M.D. on 11/12/2016 at 17:04 View: Portable, 1 view Interpretation / Wet Read by: Interpret - Radiologist CT Head Interpretation IMPRESSION: No acute intracranial process. Dictated by: Thom Bolton M.D. on 11/12/2016 at 17:41 Approved by: Thom Bolton M.D. on 11/12/2016 at 17:44 Study: Head CT no contrast Interpretation / Wet Read by: Interpret - Radiologist 12-lead ECG ECG Interpretation: Sinus rhythm rate 95 Repeat EKG nl Time: 18:12 Interpreted by: ED physician Normal ECG Interpretation: No acute ischemic changes Assessment & Plan Pamella Starks is a 81 year old female patient who has been non-compliant with her medications with history of well-controlled schizophrenia, hypertension, hyperlipidemia and depression who presented to the emergency department via ambulance because of generalized weakness, confusion and falls (she was found sitting on floor by daughter). She is being admitted for rhabdomyolysis secondary to her fall and acute kidney injury secondary to dehydration. Dizziness: Patient independent admission Syncope/Fall likely secondary to frontal lobe acute/subacute infarct, unknown onset, POA -- No one knows exactly why or how she fell -- She does have neurological sxs based on her physical exam, flat affect, mechanical voice... -- CT Head neg for acute bleeding, MR Brain stroke protocol showed frontal lobe acute/subacute infarct -- US Echo performed on 11/14, result pending, orthostatics negative, bladder scan Q6H and straight cath if >400 cc retention -- PT/OT/ST are ordered: PT recommends d/c to SNF, good rehab potential, ST recommends [facility] soft diet. --Neuro checks Q4H -- Lipid Panel (Pt has home statin), A1C -- Switch to plavix as she had a stroke while being on ASA. -- Check for tele events, consider holter monitor at d/c -- L Ventricle Mass 1 cmm size on MR Brain, POA -- Need to ask [facility] what kind of f/u they would recommend: Use [phone] to page, push images prior to calling. Acute UTI, poa active -- Leukocytosis likely due to uti. UA pos, monitor urine cx are NGTD -- treat the UTI for 3 days with ceftriaxone and stop as unclear if the organism was not detected or there is no infection. She did imropve on abx and has urinary sxs -- Cont ceftriaxone IV -- monitor cx Acute kidney injury, present on admission --Initially thought to be due to pre-renal secondary to dehydration and rhabdomyolysis - Creatinine today is 1.97. Baseline 0.66 in 2016 (did not find this in nextgen , unsure where this baseline is from). Worsened on 11/14 at 3.72 --Obtain prior records from PCP --Initially, pt is hydrated well but due to concern for overload and worsened kidney function, All fluids stopped 11/14 afternoon during rounding --Nephrology is consulted, they will see the pt (they had also recommended stopping fluids, communicated to them this is already done) --Renal US, urine eosinophils, Fe Na, PTH, uric acid, magnesium, phos are ordered to help analyze the renal injury --Ordered BNP Rhabdomyolysis, present on admission Likely secondary to prolonged time on the floor following her fall - CK >17,000-->>03838 - Discontinued fluids on 11/14 Elevated liver function tests, acute, present on admission Likely due to rhabdomyolysis -Treat the rhabdo with fluid resuscitation - Ordered a hepatitis panel and acetaminophen level to rule out other causes if elevated LFTs, tylenol level neg: Hep panel neg Elevated troponins, present on admission - Troponin is likely elevated due to COLTON -- It seems like she is leveling off at 0.06, this could be due to renal dysfunction as she has no other active cardiological symptoms Hypertension, chronic, present on admission -Continue home dose of felodipine 10 mg and atenolol 100 mg daily -We will hold losartan and hydrochlorothiazide due to renal dysfunction History of schizophrenia, stable -Continue aripiprazole 10 mg daily and nortriptyline 10 mg daily Hyperlipidemia, chronic -We will hold statins due to rhabdomyolysis CODE STATUS: Full code DVT prophylaxis: Subcutaneous heparin, SCD Bowel regimen when necessary Patient status: Patient is admitted under inpatient status expected length of stay greater than 2 midnights due to severity of presenting symptoms, risk of adverse events, and complexity of treatment plan. Family is requesting for patient to get home care nursing, but will consider SNF. Call daughter Nyasia with Q or info. VTE Prophylaxis: Sub-Q Heparin (Unfractionated), SCDs VTE Mechanical Devices: Intermittant Pneumatic CD Resuscitation Status: CPR: Attempt Resuscitation Time spent 30 min Nara Musa DO Nov 14, 2016 16:49
--- NOTE | 2016-11-14 17:12 | DRSVH ---
[facility] [address] [place] [address] Echocardiogram Report Name: SANDY SHETH FStudy Date: 11/14/2016 Height: 59 in Hospital Exam Location: [facility] Weight: 175 lb Gender: Female BSA: 1.7 m2 : 1935 Age: 81 yrs BP: 116/79 mmHg Reason For Study: STROKE Ordering Physician: Performed By: Simón Gupta Referring Physician: Derian King Interpretation Summary The left ventricle is normal in size. The ejection fraction is estimated to be 60-65%. There is no LV thrombus. The right ventricle is normal in size and function. There is moderate mitral regurgitation. There is mild tricuspid regurgitation. The right ventricular systolic pressure is estimated at 24 mmHg assuming a right atrial pressure of 3 mm Hg. Mild atherosclerotic plaque(s) in the aortic arch. Procedure: A two-dimensional transthoracic echocardiogram with color flow and Doppler was performed. The study quality was technically adequate. There is no prior echocardiogram noted for this patient. The patient was in normal sinus rhythm during the exam. Left Ventricle: The left ventricle is normal in size. There is normal left ventricular wall thickness. There is no thrombus. A false chord is noted (normal variant). The ejection fraction is estimated to be 60-65%. There are no focal wall motion abnormalities. Assessment of diastolic parameters indicates a relaxation abnormality of the left ventricle, consistent with normal filling pressures. Right Ventricle: The right ventricle is normal in size and function. Atria: Both atria are normal in size. The interatrial septum is intact with no evidence for an atrial septal defect. Mitral Valve: The mitral valve chordae are thickened and/or calcified. The mitral valve leaflets are mildly calcified. There is moderate mitral regurgitation. Aortic Valve: The aortic valve is trileaflet. The aortic valve opens well. There is no aortic valve stenosis. No aortic regurgitation is present. Tricuspid Valve: The tricuspid valve is normal in structure and function. There is mild tricuspid regurgitation. The right ventricular systolic pressure is estimated at 24 mmHg assuming a right atrial pressure of 3 mm Hg. Pulmonic Valve: The pulmonic valve is normal in structure and function. There is trace pulmonic regurgitation. Great Vessels: The aortic root is normal size. The dimensions of the ascending aorta are normal. Mild atherosclerotic plaque(s) in the aortic arch. The pulmonary artery is normal size. The IVC is of normal diameter and collapses greater than 50% with a sniff. This suggests a low right atrial pressure of 3 mm Hg. Pericardium/ Pleura There is no pericardial effusion. There is no pleural effusion. MMode/2D Measurements & Calculations LVIDd: 4.0 cm LA dimension: 3.7 cm RA long axis Ao root diam LVIDs: 2.6 cm FS: 35.5 % LA A2 area: 17.3 cm RA area Aortic Jxn: 2.1 cm EPSS: 0.23 cm LA A4 area: 19.0 cm asc Aorta Diam IVSd: 1.0 cm LA length (vol) : 9.1 cm LVPWd: 0.92 cm RA vol Ao Arch Diam (Prox LA vol: 51.2 ml : 17.1 ml Trans): 2.8 cm LA vol index RA : 9.8 mm2 IVC diam: 1.1 cm LV beth. diameter/BSA LV sys. diameter/BSA (cm/m^2): 2.3 (cm/m^2): 1.5 Doppler Measurements & Calculations Ao V2 max MV E max sreekanth MV E/A: 0.91 TR max sreekanth : 122.9 cm/sec : 83.1 cm/sec Med Peak E' Sreekanth : 229.1 cm/sec Ao max PG MV A max sreekanth TR max PG : 6.0 mmHg : 90.9 cm/sec E/E' med: 14.5 : 21.0 mmHg Ao mean PG PA V2 max : 3.5 mmHg : 77.8 cm/sec PA mean PG PA Accel Time : 0.11 sec MV dec time Ao V2 mean MR flow rate PA V2 mean : 0.14 sec : 89.5 cm/sec : 58.1 cm/sec Ao V2 VTI: 28.6 cm : 92.2 cm3/sec PA pr(Accel) MR PISA radius : 32.8 mmHg Reading Physician:KIKE
[2016-11-14 20:26] LABS: Magnesium 1.7 mg/dL (1.6-2.6); Phosphorus 5.2 mg/dL (2.5-4.9)
--- NOTE | 2016-11-14 20:40 | DRSVH ---
PROCEDURE: US RENAL SONOGRAM INDICATIONS: acute kidney injury TECHNIQUE: Real-time scanning was performed of the kidneys and bladder, with image documentation. COMPARISON: None. FINDINGS: Kidneys: Right kidney measures 10.0 cm long; left kidney measures 10.6 cm long. Right renal cortica l thickness is 1.2 cm; left renal cortical thickness is 1.4 cm. Renal cortical echotexture appears w ithin normal limits with preserved corticomedullary differentiation. No hydronephrosis. Bladder: Pre-void bladder volume is 291 mL. Patient unable to void for the study. Pre-void images demonstrate no intraluminal masses or stones. On pre-void images, neither ureteral jets are noted wi th color Doppler interrogation. (Of note, ureteral jets may not be detectable in up to 25% of cases due to insufficient differences in specific gravity between ureteral and bladder urine). Miscellaneous: No free pelvic fluid. IMPRESSION: 1. No evidence of hydronephrosis. Dictated by: Preston Dotson M.D. on 11/14/2016 at 20:35 Approved by: Preston Dotson M.D. on 11/14/2016 at 20:38
[2016-11-15] VITALS (8 sets, daily range): BP systolic 121–132; BP diastolic 66–85; PULSE 60–77; RESP 17–20; O2SAT 95–98
[2016-11-15] MEDS: Heparin 5,000 Unit/mL Inj SUBQ SCH ×3 (00:56→16:49)
--- NOTE | 2016-11-15 05:04 | NUR ---
Bedpan/ Bladder Scan Pt remains incontinent, voids small amounts on the bedpan- void trial and BVI Q6h. at 0100 residual was 247. Nystatin powder applied to breasts and groin. Pt has no complaints of pain, SOB. Remains confused and capable of following basic commands. No neuro changes. Care continues
[2016-11-15 05:38] LABS: Mean Corpuscular Hemoglobin 30.5 pg (27.0-35.0); Mean Corpuscular Volume 87.7 fL (81-100)
[2016-11-15] MEDS: Nystatin 100,000 Unit/Gm 15 Gm Powder TOPICAL SCH ×2 (09:05→20:45)
[2016-11-15] MEDS: Felodipine 5 mg ER24 Tablet PO SCH (09:06)
[2016-11-15] MEDS: ARIPiprazole 10 mg Tablet PO SCH (09:07)
--- NOTE | 2016-11-15 13:27 | CONS ---
[address] [address] CONSULTATION REPORT PATIENT: SANDY SHETH : 1935 MR#: [id number] ADMIT: 11/12/2016 JOB ID: [id number] DATE OF SERVICE: 11/15/2016 RENAL CONSULTATION: The patient is a very pleasant 81-year-old white female, who was admitted to [facility] following a fall at home and unable to get up. At time of admission, she had evidence of acute kidney injury and acute rhabdomyolysis. Her renal function has continued to worsen and renal consultation is being sought for further evaluation of her acute kidney injury. She has a longstanding history of schizophrenia which has been controlled on medication. [place] and apparently had fallen earlier in the day of admission and was wedged in between her bed and the nightstand. She did not strike her head and denies any loss of consciousness. She denies a history of any prior renal problems and there is no history of any prior diabetes, hepatitis, lupus, rheumatoid arthritis, but does have a history of hypertension. There is also no history of any hematuria, proteinuria, recurrent urinary tract infections, renolithiasis, or frequent use of nonsteroidal anti-inflammatories. At time of admission, her BUN and creatinine were 38 and 1.97. Her baseline creatinine from about a year and a half ago was 0.8. Also at time of admission, her total CK was greater than 17,000. She had a large occult blood, and 0-2 RBCs per high-power field. She was initially started on IV fluids and subsequently was started on antibiotics for asymptomatic bacteria in the urine with no white cells in the urine. She began to physically feel better. However, followup lab yesterday showed a BUN and creatinine of 53 and 3.72 and today this has continued to worsen to a level of 59 and 4.53. Renal ultrasound obtained today showed normal sized kidney with normal cortical medullary differentiation. There is no evidence of any increased echogenicity, masses, renal asymmetry or obstruction. PAST MEDICAL HISTORY: Is remarkable for: 1. Hypertension. 2. Schizophrenia which is well controlled on medications. 3. Hyperlipidemia for which she takes lovastatin. 4. Depression. PAST SURGICAL HISTORY: Is significant for bilateral cataract excision. ALLERGIES: She denies a history of any allergies to any food or any medications. SOCIAL HISTORY: There was no history of any alcohol, tobacco or illicit drug use. She normally is able to ambulate with a cane. REVIEW OF SYSTEMS: She denies any severe headache, visual changes, cough, wheezing, nausea, vomiting, constipation, diarrhea, difficulty with urination, rashes, or arthralgias. FAMILY HISTORY: Remarkable for coronary artery disease. MEDICATIONS: At time of admission include , felodipine, atenolol, losartan, lovastatin, hydrochlorothiazide and nortriptyline. PHYSICAL EXAMINATION: Revealed a [id number] obese 81-year-old white female, who was alert and oriented x3, in no distress at time of my evaluation. Her blood pressure is 125/82 with a heart rate of 73. HEENT examination is remarkable for pale sclerae. Cornea, conjunctivae, pupils, and extraocular muscles were within normal limits. Neck is supple without adenopathy, thyromegaly or jugular venous distention. Lungs are clear to auscultation though somewhat diminished due to the patient's body habitus and poor inspiratory effort. Heart was regular and rhythmical with a soft systolic murmur. Abdomen is soft without any tenderness, rebound, guarding, masses or hepatosplenomegaly. Extremities showed evidence of half and half nails but no clubbing, cyanosis or edema. Skin turgor is good and there is no evidence of any rashes. LABORATORY EXAMINATION: This morning, her white count is 9.6, hemoglobin of 10.4, hematocrit 32.8, red cell indices, platelet count and differential were normal. Her sodium was 132, potassium 4.4, chloride 97, bicarbonate 15, BUN and creatinine were 59 and 4.53. Her glucose this morning was 100. Calcium is slightly low at 7.5. AST is elevated at 297 with an ALT of 145. Her last total CPK was yesterday and it was 10,518. Her liver function studies overall are trending down. Renal ultrasound was unremarkable. Echocardiogram revealed normal left ventricular size, shape and function with an ejection fraction of 60%-65%. There was no comment made about relaxation abnormalities. IMPRESSION: 1. Acute rhabdomyolysis. 2. Acute kidney injury secondary to #1. 3. Increased anion gap metabolic acidosis. 4. Hypertension. RECOMMENDATION: I feel the patient is euvolemic and I do not feel that at this point, any further fluids would be of any benefit. I would like to continue to follow her lab, blood pressure, and intake and output. Should we need to, dialysis is always an option. However, I do not feel we have an indication for this at this time. Once again, I would like to thank you for allowing me to participate in the care of this most pleasant and interesting patient. I will be following her closely with you.
--- NOTE | 2016-11-15 15:42 | PCM.PNMED ---
Subjective Date of Service Nov 15, 2016 Subjective Pt reports inc urinary frequency. Says swelling of arms has improved. Exam Vital Signs Vital Sign - Last Date Time Temp Pulse Resp B/P Pulse Ox O2 Delivery O2 Flow Rate FiO2 11/15/16 14:14 77 Room Air 11/15/16 13:42 36.8 20 122/85 95 Intake and Output 11/14/16 11/14/16 11/15/16 Cumulative From/Thru 15:00 23:00 07:00 11/12/16 14:33 - 11/15/16 05:10 Intake Total 1751 ml 100 ml 7156 ml Output Total 1200 ml 1041 ml 4141 ml Balance 551 ml -941 ml 3015 ml Intake Oral 1437 ml 100 ml 2937 ml IV Total 314 ml 4219 ml Output Urine Total 1200 ml 1041 ml 4141 ml # Bowel Movements 1 0 1 Exam Gen.: Patient appears to have that delayed responses, and flat affect, she is cooperative and following commands HEENT: Normocephalic atraumatic, poor dentition, halitosis Lungs: Bibasilar crackles. 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 Remarkable for delayed responses, Deficit visual field on the left side, she is able to perform [id number]. alternative hands test showed no deficits LE reflexes are equal and symmetric IVs and Medications Medications Reviewed: Medications were reviewed in detail Lab and Diagnostics Result Diagram: 11/15/1618 11/15/1618 X-Rays, CTs and MRIs X-Ray Chest Interpretation Chest Xray Interpretation: IMPRESSION: No acute disease. Dictated by: Thom Bolton M.D. on 11/12/2016 at 17:03 Approved by: Thom Bolton M.D. on 11/12/2016 at 17:04 View: Portable, 1 view Interpretation / Wet Read by: Interpret - Radiologist CT Head Interpretation IMPRESSION: No acute intracranial process. Dictated by: Thom Bolton M.D. on 11/12/2016 at 17:41 Approved by: Thom Bolton M.D. on 11/12/2016 at 17:44 Study: Head CT no contrast Interpretation / Wet Read by: Interpret - Radiologist 12-lead ECG ECG Interpretation: Sinus rhythm rate 95 Repeat EKG nl Time: 18:12 Interpreted by: ED physician Normal ECG Interpretation: No acute ischemic changes Assessment & Plan Pamella Starks is a 81 year old female patient who has been non-compliant with her medications with history of well-controlled schizophrenia, hypertension, hyperlipidemia and depression who presented to the emergency department via ambulance because of generalized weakness, confusion and falls (she was found sitting on floor by daughter). She is being admitted for rhabdomyolysis secondary to her fall. . Syncope/Fall likely secondary to frontal lobe acute/subacute infarct, unknown onset, POA -- No one knows exactly why or how she fell -- She does have neurological sxs based on her physical exam, flat affect, mechanical voice... -- CT Head neg for acute bleeding, MR Brain stroke protocol showed frontal lobe acute/subacute infarct -- US Echo performed on 11/14, result pending, orthostatics negative, bladder scan Q6H and straight cath if >400 cc retention -- PT/OT/ST are ordered: PT recommends d/c to SNF, good rehab potential, ST recommends [facility] soft diet. --Neuro checks Q4H -- Lipid Panel (Pt has home statin), A1C -- Switch to plavix as she had a stroke while being on ASA. -- Check for tele events, consider holter monitor at d/c -- L Ventricle Mass 1 cmm size on MR Brain, POA -- Need to ask [facility] what kind of f/u they would recommend: Use [phone] to page, push images prior to calling. Rhabdomyolysis, present on admission Likely secondary to prolonged time on the floor following her fall - CK >17,000-->>41400 - Discontinued fluids on 11/14 - --Nephrology is consulted,Dr. Self. Stop IVF. Follow labs, BP, I/O. Dialysis not indicated at this time but will follow. - LFTs improving. Acute kidney injury, present on admission- 2/2 to Rhabdo. --Initially thought to be due to pre-renal secondary to dehydration and rhabdomyolysis - Creatinine worsening. Baseline 0.66 in 2016 (did not find this in nextgen, unsure where this baseline is from). --Initially, pt is hydrated well but due to concern for overload and worsened kidney function, All fluids stopped 11/14 afternoon during rounding Acute UTI, poa active -- Leukocytosis likely due to uti. UA pos, monitor urine cx are NGTD -- treat the UTI for 3 days with ceftriaxone and stop as unclear if the organism was not detected or there is no infection. She did imropve on abx and has urinary sxs -- Cont ceftriaxone IV -- monitor cx Hypertension, chronic, present on admission -Continue home dose of felodipine 10 mg and atenolol 100 mg daily -We will hold losartan and hydrochlorothiazide due to renal dysfunction History of schizophrenia, stable -Continue aripiprazole 10 mg daily and nortriptyline 10 mg daily Elevated troponins, present on admission, resolved. - Troponin is likely elevated due to COLTON Hyperlipidemia, chronic -We will hold statins due to rhabdomyolysis CODE STATUS: Full code DVT prophylaxis: Subcutaneous heparin, SCD Bowel regimen when necessary Patient status: Patient is admitted under inpatient status expected length of stay greater than 2 midnights due to severity of presenting symptoms, risk of adverse events, and complexity of treatment plan. Family is requesting for patient to get home care nursing, but will consider SNF. Call daughter Nyasia with Q or info. VTE Prophylaxis: Sub-Q Heparin (Unfractionated), SCDs VTE Mechanical Devices: Intermittant Pneumatic CD Resuscitation Status: CPR: Attempt Resuscitation Ranjeet Kasper MD Nov 15, 2016 15:42
--- NOTE | 2016-11-15 17:10 | NUR ---
Social Work- Continued D/C Planning Data: EMR reviewed. Pt is on day 3 of hospitalization for General Weakness, Acute Kidney Injury. Pt discussed in multidisciplinary rounds. Nephrology will consult. PT has seen pt and recommending SNF at discharge. Pt has been set up with [facility]. feels that given pt's confirmed stroke and PT needs that pt should go to SNF. SNF order received. T/C to pt's daughter Nyasia [phone] regarding discharge planning. SNF recommendation explained. Nyasia is agreeable to discharge plan and chose [facility] for first choice. SW left SNF choice list at bedside and encouraged Nyasia and pt to look it over and [facility] will follow up with them tomorrow. SW phone number provided. Nyasia had questions related to [facility]. SW provided Q & A related to [facility] packet at pt's bedside and also [facility] Eligibility information at pt's bedside. Nyasia informed of this and is agreeable, will look it over tonight. Nyasia and [facility] spoke for approximately 30 minutes regarding [facility], [facility], pt's insurance, and discharge plan. SW spoke with pt regarding discharge plan, SNF recommendation. Pt and Nyasia updated and agreeable to plan. SW will follow up with pt and Nyasia tomorrow morning regarding additional SNF choices. Nyasia is aware that she can contact [facility] with choices as well. SW will continue to follow. Assessment: Pt for whom SNF is medically necessary . Plan: Paperwork and PASRR to be placed in pt's chart. Referral to [facility] to be completed tomorrow morning. Pt and Nyasia updated and agreeable to plan, SW will continue to follow. ROSANNA Thrasher
[2016-11-15] MEDS ORDERED: cefTRIAXone Inj 2,000 MG in Dextrose 5% Minibag Plus 50 ML IV SCH (17:40)
--- NOTE | 2016-11-15 19:35 | NUR ---
Activity Pt up to chair for meals and ambulating to BR with 1 person assist, needs directions with dementia. Pt A&O x 3, but can be easily confused especially when things are explained. No pain during shift. Post void residual was 56 and briefs weighed during shift. Pt in chair, has call light in reach, care continues.
[2016-11-16] VITALS (8 sets, daily range): BP systolic 110–152; BP diastolic 66–79; PULSE 55–77; RESP 17–18; O2SAT 97–99
[2016-11-16] MEDS: Heparin 5,000 Unit/mL Inj SUBQ SCH ×3 (01:19→17:29)
--- NOTE | 2016-11-16 08:02 | NUR ---
Pain Patient states she has no pain. Patient A&Ox3. Vitals stable. Patient up one person assist to bedside commode. Patient has sleeve over L/ Peripheral IV site. Tele sinus 62. Saline locked.
[2016-11-16] MEDS: Nystatin 100,000 Unit/Gm 15 Gm Powder TOPICAL SCH ×2 (08:50→21:59)
[2016-11-16] MEDS: ARIPiprazole 10 mg Tablet PO SCH (08:50)
[2016-11-16] MEDS: Felodipine 5 mg ER24 Tablet PO SCH (08:51)
--- NOTE | 2016-11-16 09:13 | NUR ---
Social Work- Update Note Spoke to pt and placed call to [facility] regarding additional SNF referrals, no other choices were made. [facility] is patients only choice for SNF at discharge. [facility] requested to make a referral this morning. All updated and agreeable to plan. ROSANNA Thrasher
--- NOTE | 2016-11-16 11:08 | PCM.PNNEPH ---
MURRAY BACON DO 11/16/16 1108: Subjective Date of Service Nov 16, 2016 Subjective Overnight: No overnight events, contains appropriate mentation. Able to use bedside commode with good urinary output, 1100 mL over the last 12 hours 3000 mL over the last 24 hours. One episode of hypertension 152/74 otherwise vital signs remained stable. Telemetry showed sinus rhythm at 62. Today: Patient awake and alert sitting in bedside chair. Reports no complaints other than lower extremity edema and swelling which is chronic for her. States she continues to have good urinary output has no complaints at this time. BUN and creatinine have a slight rise in the last 24 hours 59/4.53-65/4.55. Patient is able to eat and drink without difficulty. No supplemental IV fluids. Total CK continues to trend down, 3000 today, AST ALT continued downward trend as well. Exam Vital Signs Vital Sign - Last Date Time Temp Pulse Resp B/P Pulse Ox O2 Delivery O2 Flow Rate FiO2 11/16/16 10:42 63 11/16/16 08:37 36.9 17 152/74 97 Room Air Intake and Output 11/15/16 11/15/16 11/16/16 Cumulative From/Thru 15:00 23:00 07:00 11/12/16 14:33 - 11/16/16 04:30 Intake Total 1780 ml 600 ml 9536 ml Output Total 1966 ml 1155 ml 7262 ml Balance -186 ml -555 ml 2274 ml Intake Oral 1720 ml 600 ml 5257 ml IV Total 60 ml 4279 ml Output Urine Total 1966 ml 1155 ml 7262 ml # Bowel Movements 0 2 3 Exam General: Awake and alert sitting in bedside chair in no acute distress, moderately obese, appropriately interactive. HEENT: Normocephalic, atraumatic. External ears without defect. Pupils equal, round, and reactive to light and accommodation. Anicteric sclerae, moist conjunctivae, and no lid lag. Moist mucosa. Neck: Supple with full range of motion. No jugular venous distension. Cardiovascular: Regular rate and rhythm with soft systolic murmur. Pulmonary: Clear to auscultation bilaterally with no crackles, wheezes, or rhonchi. Normal respiratory effort with no use of accessory muscles. Abdomen: Soft, nontender, nondistended. Extremities: Half and half nails. No clubbing, cyanosis. Lower extremity edema bilaterally with venous stasis. Skin: Normal temperature, turgor, and texture Neurological: Cranial nerves grossly intact. Psychiatric: Normal mood and affect. Alert and oriented to person, place, and time. IVs and Medications Medications Reviewed: Medications were reviewed in detail Lab and Diagnostics Result Diagram: 11/15/1618 11/16/16 0530 X-Rays, CTs and MRIs . X-RAY CHEST ONE VIEW, PORTABLE IMPRESSION: No acute disease. Dictated by: Thom Bolton M.D. on 11/12/2016 CT BRAIN WITHOUT CONTRAST IMPRESSION: No acute intracranial process. Dictated by: Thom Bolton M.D. on 11/12/2016 MRI BRAIN WITHOUT CONTRAST IMPRESSION: 1. Small acute size subacute posterior right frontal infarct. 2. Moderate periventricular and subcortical white matter chronic microvascular ischemic changes. 3. Mild, diffuse volume loss. 4. 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 Recommend gadolinium enhanced MRI for further characterization of the lesion. Dictated by: Sharri Peters MD, PhD on 11/14/2016 MRA ANGIOGRAM HEAD WITHOUT CONTRAST IMPRESSION: Negative examination within the limitations caused by motion artifact. Dictated by: Sharri Peters MD, PhD on 11/14/2016 US RENAL SONOGRAM IMPRESSION: 1. No evidence of hydronephrosis. Dictated by: Preston Dotson M.D. on 11/14/2016 12-lead ECG ECG Interpretation: Sinus rhythm rate 95 Repeat EKG nl Time: 18:12 Interpreted by: ED physician Normal ECG Interpretation: No acute ischemic changes Cardiac Echo Impressions . Echocardiogram Report Interpretation Summary: The left ventricle is normal in size. The ejection fraction is estimated to be 60-65%. There is no LV thrombus. The right ventricle is normal in size and function. There is moderate mitral regurgitation. There is mild tricuspid regurgitation. The right ventricular systolic pressure is estimated at 24 mmHg assuming a right atrial pressure of 3 mm Hg. Mild atherosclerotic plaque(s) in the aortic arch. Plan Impression Assessment & plan 1. Acute rhabdomyolysis. - Improving, total CK continues to trend down 3000 from 17,000 on admit - Good urinary output - Continue to encourage oral intake - Continue follow labs 2. Acute kidney injury secondary to #1 - Most likely entering the recovery phase - Good urinary output, able tolerate oral intake - Continue to encourage oral fluids - Continue to monitor 3. Increased anion gap metabolic acidosis. - Ongoing - Continue to monitor 4. Hypertension. - Stable - Continue home meds 5. Hyponatremia - Serum sodium fell to 127 from 132 - Continue to encourage oral diet and fluids 6. Hypomagnesemia - 2 g IV magnesium Plan: Edgar Self DO 11/16/16 1343: Exam Lab and Diagnostics Result Diagram: 11/15/16 0518 11/16/16 0530 Plan Plan: Nephrology attending note: Patient was seen and examined along with Dr. Bacon I agree with the above note and would like to continue to monitor her lab and intake and output is a feeling that she is in the early stages of recovery of renal function. Urine output is sustained address her fluid repletion. MURRAY BACON DO Nov 16, 2016 11:08 Edgar Self DO Nov 16, 2016 13:43
--- NOTE | 2016-11-16 11:08 | NUR ---
Gave access to [facility] per REC[facility] CENTER COORDINATOR and MD orders
[2016-11-16] MEDS ORDERED: Magnesium Sulf 2 Gm/50mL Water 2 GM in IV Premix 1 EACH IV ONE (11:20)
--- NOTE | 2016-11-16 11:33 | PCM.PNMED ---
Subjective Date of Service Nov 16, 2016 Subjective Pt had no major overnight events. Dec swelling of lower extremities. Exam Vital Signs Vital Sign - Last Date Time Temp Pulse Resp B/P Pulse Ox O2 Delivery O2 Flow Rate FiO2 11/16/16 10:42 63 11/16/16 08:37 36.9 17 152/74 97 Room Air Intake and Output 11/15/16 11/15/16 11/16/16 Cumulative From/Thru 15:00 23:00 07:00 11/12/16 14:33 - 11/16/16 04:30 Intake Total 1780 ml 600 ml 9536 ml Output Total 1966 ml 1155 ml 7262 ml Balance -186 ml -555 ml 2274 ml Intake Oral 1720 ml 600 ml 5257 ml IV Total 60 ml 4279 ml Output Urine Total 1966 ml 1155 ml 7262 ml # Bowel Movements 0 2 3 Exam Gen.: Patient appears to have that delayed responses, and flat affect, she is cooperative and following commands however HEENT: Normocephalic atraumatic, poor dentition, halitosis Lungs: Bibasilar crackles. 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 Remarkable for delayed responses, she missed one visual field on the left side, she is able to perform [id number] but however she missed mendoza on the left side, alternative hands test showed no deficits LE reflexes are equal and symmetric Psychiatric: Improved behavior, better eye contact IVs and Medications Medications Reviewed: Medications were reviewed in detail Lab and Diagnostics Result Diagram: 11/15/16 0518 11/16/16 0530 X-Rays, CTs and MRIs . X-RAY CHEST ONE VIEW, PORTABLE IMPRESSION: No acute disease. Dictated by: Thom Bolton M.D. on 11/12/2016 CT BRAIN WITHOUT CONTRAST IMPRESSION: No acute intracranial process. Dictated by: Thom Bolton M.D. on 11/12/2016 MRI BRAIN WITHOUT CONTRAST IMPRESSION: 1. Small acute size subacute posterior right frontal infarct. 2. Moderate periventricular and subcortical white matter chronic microvascular ischemic changes. 3. Mild, diffuse volume loss. 4. 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 Recommend gadolinium enhanced MRI for further characterization of the lesion. Dictated by: Sharri Peters MD, PhD on 11/14/2016 MRA ANGIOGRAM HEAD WITHOUT CONTRAST IMPRESSION: Negative examination within the limitations caused by motion artifact. Dictated by: Sharri Peters MD, PhD on 11/14/2016 US RENAL SONOGRAM IMPRESSION: 1. No evidence of hydronephrosis. Dictated by: Preston Dotson M.D. on 11/14/2016 12-lead ECG ECG Interpretation: Sinus rhythm rate 95 Repeat EKG nl Time: 18:12 Interpreted by: ED physician Normal ECG Interpretation: No acute ischemic changes Cardiac Echo Impressions . Echocardiogram Report Interpretation Summary: The left ventricle is normal in size. The ejection fraction is estimated to be 60-65%. There is no LV thrombus. The right ventricle is normal in size and function. There is moderate mitral regurgitation. There is mild tricuspid regurgitation. The right ventricular systolic pressure is estimated at 24 mmHg assuming a right atrial pressure of 3 mm Hg. Mild atherosclerotic plaque(s) in the aortic arch. Assessment & Plan Pamella Starks is a 81 year old female patient who has been non-compliant with her medications with history of well-controlled schizophrenia, hypertension, hyperlipidemia and depression who presented to the emergency department via ambulance because of generalized weakness, confusion and falls (she was found sitting on floor by daughter). She is being admitted for rhabdomyolysis secondary to her fall. . Syncope/Fall likely secondary to frontal lobe acute/subacute infarct, unknown onset, POA -- No one knows exactly why or how she fell -- She does have neurological sxs based on her physical exam, flat affect, mechanical voice... -- CT Head neg for acute bleeding, MR Brain stroke protocol showed frontal lobe acute/subacute infarct -- US Echo performed on 11/14, result pending, orthostatics negative, bladder scan Q6H and straight cath if >400 cc retention -- PT/OT/ST are ordered: PT recommends d/c to SNF, good rehab potential, ST recommends [facility] soft diet. --Neuro checks Q4H -- Lipid Panel (Pt has home statin) -- Switch to plavix as she had a stroke while being on ASA. -- Check for tele events, consider holter monitor at d/c L Ventricle Mass 1 cmm size on MR Brain, POA -- 11/16- Called [facility] what kind of f/u they would recommend: Pager [phone] to page, pushed images. They will review and call back with recs. Rhabdomyolysis, present on admission Likely secondary to prolonged time on the floor following her fall - CK >17,000-->>90055 - Discontinued fluids on 11/14 - --Nephrology is consulted,Dr. Self. Stop IVF. Follow labs, BP, I/O. Dialysis not indicated at this time but will follow. - LFTs improving. Acute kidney injury, present on admission- 2/2 to Rhabdo. --Initially thought to be due to pre-renal secondary to dehydration and rhabdomyolysis - Creatinine worsening. Baseline 0.66 in 2015 (did not find this in nextgen, unsure where this baseline is from). --Initially, pt is hydrated well but due to concern for overload and worsened kidney function, All fluids stopped 11/14 afternoon during rounding Hyponatremia- new issue, active- - May be 2/2 to diuresis, repeat CMP in AM. - Nephrology following. Acute UTI, poa, resolved. -- Leukocytosis likely due to uti. UA pos, monitor urine cx are NGTD -- UTI- WBC improved today. ceftriaxone Day 3, will stop abx. If febrile, resume. - monitor cx Hypertension, chronic, present on admission -Continue home dose of felodipine 10 mg and atenolol 100 mg daily -We will hold losartan and hydrochlorothiazide due to renal dysfunction History of schizophrenia, stable -Continue aripiprazole 10 mg daily and nortriptyline 10 mg daily Elevated troponins, present on admission, resolved. - Troponin is likely elevated due to COLTON Hyperlipidemia, chronic -We will hold statins due to rhabdomyolysis CODE STATUS: Full code DVT prophylaxis: Subcutaneous heparin, SCD Bowel regimen when necessary Patient status: Patient is admitted under inpatient status expected length of stay greater than 2 midnights due to severity of presenting symptoms, risk of adverse events, and complexity of treatment plan. Family is requesting for patient to get home care nursing, but will consider SNF. Call daughter Nyasia with Q or info. VTE Prophylaxis: Sub-Q Heparin (Unfractionated), SCDs VTE Mechanical Devices: Intermittant Pneumatic CD Resuscitation Status: CPR: Attempt Resuscitation Ranjeet Kasper MD Nov 16, 2016 11:33
--- NOTE | 2016-11-16 14:34 | NUR ---
Activity Patient has been up and out of bed sitting in a chair for most of shift. Uses call light appropriately. Does have moments of forgetfulness but it otherwise appropriate and A&OX2. Patient has adequate oral intake and a good appetite with good urine output. Usually incontinent but has used call light once this shift for assistance to bathroom. Hourly rounding in place, tiny alarm in place, call light within reach.
[2016-11-16] MEDS ORDERED: Pharmacy Discharge Counseling XX SCH (15:15)
--- NOTE | 2016-11-16 15:16 | PCM.PHADCC ---
Subjective generalized weakness, confusion, and a fall Clinical Pharmacist Consult: Discharge Counseling (counselled pt on her new prescription for clopidogrel) Objective Vital Signs Date Time Temp Pulse Resp B/P Pulse Ox O2 Delivery O2 Flow Rate FiO2 11/16/16 13:27 77 Room Air 11/16/16 13:13 36.1 55 18 110/66 98 Room Air 11/16/16 10:42 63 11/16/16 08:37 36.9 68 17 152/74 97 Room Air 11/16/16 04:30 36.4 69 17 132/70 97 Room Air 11/15/16 23:50 36.5 71 17 121/66 97 Room Air 11/15/16 20:00 60 11/15/16 19:30 36.4 68 17 128/74 95 Room Air Intake and Output 11/14/16 11/15/16 11/16/16 00:00 00:00 00:00 Intake Total 3755 ml 2301 ml 1880 ml Output Total 1700 ml 1400 ml 3007 ml Balance 2055 ml 901 ml -1127 ml Weight (Kilograms): 81.200 Height (Feet): 4 Height (Inches): 11.00 Test 11/12/16 16:48 11/12/16 17:58 11/13/16 01:28 11/13/16 10:52 Neutrophils (%) (Auto) 74.0% (40-74) Lymphocytes (%) (Auto) 9.6% (14-46) Monocytes (%) (Auto) 16.0% (4-12) Eosinophils (%) (Auto) 0% (0-5) Basophils (%) (Auto) 0.1% (0-3) Hold [place] Top Tube Received (Received) Urine Color Yellow (YELLOW) Urine Appearance Hazy (CLEAR,HAZY) Urine pH 6.5 (5.0-8.0) Urine Specific [place] 1.025 (1.003-1.035) Urine Protein 300mg/dL (NEG,TRACE) Urine Glucose (UA) 100mg/dL (NEGATIVE) Urine Ketones Tracemg/dL (NEGATIVE) Urine Occult Blood Large (NEGATIVE) Urine Nitrite Positive (NEGATIVE) Urine Bilirubin Negative (NEGATIVE) Urine Urobilinogen 1.0mg/dL (NORMAL) Urine Leukocyte Esterase Trace (NEGATIVE) Urine RBC 0-2/hpf (0-2) Urine WBC 0-5/hpf (0-5) Urine Epithelial Cells None/hpf (NONE-MOD) Urine Crystals None seen (NONE SEEN) Urine Bacteria Few/hpf (NONE-FEW) Urine Hyaline Casts None/lpf (NONE) Urine Granular Casts None seen (NONE SEEN) Urine Waxy Casts None seen (NONE SEEN) Urine Red Blood Cell Casts None seen (NONE SEEN) Urine White Blood Cell Casts None seen (NONE SEEN) Urine Mucus None seen (None Seen) Urine Trichomonas None seen (NONE SEEN) Urine Yeast None (NONE SEEN) Urinalysis Comment None Urine Culture Reflexed Indicated Hold Purple Top Tube Received (Received) Acetaminophen Level < 15.0ug/mL Rx (10-25) Hepatitis A IgM Antibody Negative (Negative) Hepatitis B Surface Antigen Negative (Negative) Hepatitis B Core IgM Antibody Negative (Negative) Hepatitis C Antibody <0.1s/co ratio (0.0-0.9) Hepatitis C Comment Comment (.) Troponin T 0.056ug/L (0.0-0.011) Test 11/14/16 08:30 11/14/16 19:52 11/15/16 05:18 11/16/16 05:30 Hemoglobin A1c 6.1% (4.8-5.6) Triglycerides Level 191mg/dL (0-149) Cholesterol Level 129mg/dL (100-199) LDL Cholesterol, Calculated 45.800mg/dL (0-99) VLDL Cholesterol 38.200mg/dL HDL Cholesterol 45mg/dL (>39) Cholesterol/HDL Ratio 2.87 (0.0-4.4) Uric Acid 11.1mg/dL (2.6-7.2) Phosphorus Level 5.2mg/dL (2.5-4.9) Pro-B-Type Natriuretic Peptide 6717pg/mL (0-738) Parathyroid Hormone (Intact) 226pg/mL (15-65) White Blood Count 9.6th/mm3 (3.8-10.1) Red Blood Count 3.74mil/mm3 (3.90-5.20) Hemoglobin 11.4g/dL (12.0-15.6) Hematocrit 32.8% (35.0-46.0) Mean Corpuscular Volume 87.7fL (81-100) Mean Corpuscular Hemoglobin 30.5pg (27.0-35.0) Mean Corpuscular Hemoglobin Concent 34.8% (32.0-37.0) Red Cell Distribution Width 12.1% (12.3-15.4) Platelet Count 191bil/L (150-400) Total Bilirubin 0.2mg/dL (0.0-1.2) Aspartate Amino Transf (AST/SGOT) 297U/L (0-50) Alanine Aminotransferase (ALT/SGPT) 145U/L (0-32) Alkaline Phosphatase 74U/L (25-165) Total Protein 5.6g/dL (6.4-8.4) Albumin 2.8g/dL (3.4-5.0) Sodium Level 127mEq/L (134-144) Potassium Level 4.8mEq/L (3.5-5.2) Chloride Level 91mEq/L (97-108) Carbon Dioxide Level 14mmol/L (18-29) Blood Urea Nitrogen 65mg/dL (8-27) Creatinine 4.55mg/dL (0.57-1.00) Estimat Glomerular Filtration Rate 13mL/min (>59) Glucose Level 111mg/dL (60-99) Calcium Level 7.8mg/dL (8.5-10.1) Magnesium Level 1.4mg/dL (1.6-2.6) Total Creatine Kinase 3018U/L (21-215) Neetu Harmon [facility] Nov 16, 2016 15:15
--- NOTE | 2016-11-16 15:52 | NUR ---
Social Work- Readiness for D/C/Multidisciplinary Rounds Data: EMR reviewed. Pt is on day 4 of hospitalization. Pt discussed in multidisciplinary rounds. Pt is not medically stable for d/c at this time, anticipate 2 more days. Nephrology is following. Pt has been accepted at [facility] with Jess to follow pending [facility] authorization. PT continues to recommend SNF at this time. Paperwork in pt's chart, PASRR in folder. Pt updated of plan at bedside. Pt's daughter updated of plan by phone, SW left message. SW will continue to follow. Assessment: Pt for whom SNF is medically necessary Plan: [facility] accepted pt pending [facility] authorization. Paperwork in pt's chart, PASRR in folder. Pt and pt's daughter all updated and agreeable to plan. SW will continue to follow. ROSANNA Thrasher
[2016-11-17] VITALS (7 sets, daily range): BP systolic 109–145; BP diastolic 66–79; PULSE 57–65; RESP 17–20; O2SAT 95–98
[2016-11-17] MEDS: Heparin 5,000 Unit/mL Inj SUBQ SCH ×3 (01:34→18:30)
--- NOTE | 2016-11-17 02:17 | NUR ---
Activity Patient resting in bed quietly most of shift. Patient drinking fluids regularly with good urine out put. Patient appears A&Ox3. Patient up to bedside commode with fww. Patient incontinent and wearing brief. Vitals stable. Tele sinus 60's. Care continues.
[2016-11-17 05:58] LABS: Magnesium 1.9 mg/dL (1.6-2.6); Phosphorus 6.6 mg/dL (2.5-4.9)
[2016-11-17] MEDS: ARIPiprazole 10 mg Tablet PO SCH (09:04)
[2016-11-17] MEDS: Felodipine 5 mg ER24 Tablet PO SCH (09:04)
[2016-11-17] MEDS: Nystatin 100,000 Unit/Gm 15 Gm Powder TOPICAL SCH ×2 (09:30→22:02)
--- NOTE | 2016-11-17 11:07 | PCM.PHADCC ---
Subjective Date of Service: Nov 17, 2016 generalized weakness, confusion, and a fall Clinical Pharmacist Consult: Discharge Counseling Objective Vital Signs Date Time Temp Pulse Resp B/P Pulse Ox O2 Delivery O2 Flow Rate FiO2 11/17/16 08:46 36.4 60 18 145/77 97 Room Air 11/17/16 04:52 36.8 60 17 137/79 98 Room Air 11/17/16 00:17 36.5 62 17 129/74 96 Room Air 11/16/16 23:06 62 11/16/16 19:20 36.5 58 17 141/79 99 Room Air 11/16/16 16:58 36.3 63 18 147/76 97 Room Air 11/16/16 13:27 77 Room Air 11/16/16 13:13 36.1 55 18 110/66 98 Room Air Intake and Output 11/15/16 11/16/16 11/17/16 00:00 00:00 00:00 Intake Total 2301 ml 1880 ml 2907 ml Output Total 1400 ml 3007 ml 1885 ml Balance 901 ml -1127 ml 1022 ml Weight (Kilograms): 80.500 Height (Feet): 4 Height (Inches): 11.00 Test 11/12/16 16:48 11/12/16 17:58 11/13/16 01:28 11/13/16 10:52 Neutrophils (%) (Auto) 74.0% (40-74) Lymphocytes (%) (Auto) 9.6% (14-46) Monocytes (%) (Auto) 16.0% (4-12) Eosinophils (%) (Auto) 0% (0-5) Basophils (%) (Auto) 0.1% (0-3) Hold [place] Top Tube Received (Received) Urine Color Yellow (YELLOW) Urine Appearance Hazy (CLEAR,HAZY) Urine pH 6.5 (5.0-8.0) Urine Specific [place] 1.025 (1.003-1.035) Urine Protein 300mg/dL (NEG,TRACE) Urine Glucose (UA) 100mg/dL (NEGATIVE) Urine Ketones Tracemg/dL (NEGATIVE) Urine Occult Blood Large (NEGATIVE) Urine Nitrite Positive (NEGATIVE) Urine Bilirubin Negative (NEGATIVE) Urine Urobilinogen 1.0mg/dL (NORMAL) Urine Leukocyte Esterase Trace (NEGATIVE) Urine RBC 0-2/hpf (0-2) Urine WBC 0-5/hpf (0-5) Urine Epithelial Cells None/hpf (NONE-MOD) Urine Crystals None seen (NONE SEEN) Urine Bacteria Few/hpf (NONE-FEW) Urine Hyaline Casts None/lpf (NONE) Urine Granular Casts None seen (NONE SEEN) Urine Waxy Casts None seen (NONE SEEN) Urine Red Blood Cell Casts None seen (NONE SEEN) Urine White Blood Cell Casts None seen (NONE SEEN) Urine Mucus None seen (None Seen) Urine Trichomonas None seen (NONE SEEN) Urine Yeast None (NONE SEEN) Urinalysis Comment None Urine Culture Reflexed Indicated Hold Purple Top Tube Received (Received) Acetaminophen Level < 15.0ug/mL Rx (10-25) Hepatitis A IgM Antibody Negative (Negative) Hepatitis B Surface Antigen Negative (Negative) Hepatitis B Core IgM Antibody Negative (Negative) Hepatitis C Antibody <0.1s/co ratio (0.0-0.9) Hepatitis C Comment Comment (.) Troponin T 0.056ug/L (0.0-0.011) Test 11/14/16 08:30 11/14/16 19:52 11/15/16 05:18 11/16/16 05:30 Hemoglobin A1c 6.1% (4.8-5.6) Triglycerides Level 191mg/dL (0-149) Cholesterol Level 129mg/dL (100-199) LDL Cholesterol, Calculated 45.800mg/dL (0-99) VLDL Cholesterol 38.200mg/dL HDL Cholesterol 45mg/dL (>39) Cholesterol/HDL Ratio 2.87 (0.0-4.4) Uric Acid 11.1mg/dL (2.6-7.2) Pro-B-Type Natriuretic Peptide 6717pg/mL (0-738) Parathyroid Hormone (Intact) 226pg/mL (15-65) White Blood Count 9.6th/mm3 (3.8-10.1) Red Blood Count 3.74mil/mm3 (3.90-5.20) Hemoglobin 11.4g/dL (12.0-15.6) Hematocrit 32.8% (35.0-46.0) Mean Corpuscular Volume 87.7fL (81-100) Mean Corpuscular Hemoglobin 30.5pg (27.0-35.0) Mean Corpuscular Hemoglobin Concent 34.8% (32.0-37.0) Red Cell Distribution Width 12.1% (12.3-15.4) Platelet Count 191bil/L (150-400) Total Creatine Kinase 3018U/L (21-215) Test 11/17/16 04:50 Sodium Level 129mEq/L (134-144) Potassium Level 4.7mEq/L (3.5-5.2) Chloride Level 91mEq/L (97-108) Carbon Dioxide Level 18mmol/L (18-29) Blood Urea Nitrogen 65mg/dL (8-27) Creatinine 3.91mg/dL (0.57-1.00) Estimat Glomerular Filtration Rate 16mL/min (>59) Glucose Level 99mg/dL (60-99) Calcium Level 8.3mg/dL (8.5-10.1) Phosphorus Level 6.6mg/dL (2.5-4.9) Magnesium Level 1.9mg/dL (1.6-2.6) Total Bilirubin 0.2mg/dL (0.0-1.2) Aspartate Amino Transf (AST/SGOT) 118U/L (0-50) Alanine Aminotransferase (ALT/SGPT) 128U/L (0-32) Alkaline Phosphatase 83U/L (25-165) Total Protein 6.3g/dL (6.4-8.4) Albumin 3.3g/dL (3.4-5.0) Assessment/Plan Assessment/Plan Patient newly started on clopidogrel. Discharge counselling not completed since pt going to SNF. Mariajose Andrade PharmD Nov 17, 2016 11:06
--- NOTE | 2016-11-17 12:44 | PCM.PNNEPH ---
MURRAY BACON DO 11/17/16 1244: Subjective Date of Service Nov 17, 2016 Subjective Overnight: No overnight events, maintains appropriate mentation. Able to use bedside commode with good urinary output, 1000 mL over the last 12 hours and ~ 2000 mL over the last 24 hours. Vital signs remained stable. Today: Patient awake and alert sitting up in hospital bed. No complaints. Continues to have good urinary output. BUN and creatinine have started a downward trend. Continues to have good appetite and good oral fluid intake.. No supplemental IV fluids, AST ALT continued downward trend as well. Exam Vital Signs Vital Sign - Last Date Time Temp Pulse Resp B/P Pulse Ox O2 Delivery O2 Flow Rate FiO2 11/17/16 08:46 36.4 60 18 145/77 97 Room Air Intake and Output 11/16/16 11/16/16 11/17/16 Cumulative From/Thru 14:59 22:59 06:59 11/12/16 14:33 - 11/17/16 04:51 Intake Total 2307 ml 1050 ml 75626 ml Output Total 730 ml 1070 ml 9062 ml Balance 1577 ml -20 ml 3831 ml Intake Oral 2237 ml 1050 ml 8544 ml IV Total 70 ml 4349 ml Output Urine Total 729 ml 1070 ml 9061 ml Stool Total 1 ml 1 ml # Voids 1 1 # Bowel Movements 0 3 Exam General: Awake and alert sitting in hospital bed in no acute distress, moderately obese, appropriately interactive. HEENT: Normocephalic, atraumatic. External ears without defect. Moist mucosa. Neck: Supple with full range of motion. No jugular venous distension. Cardiovascular: Regular rate and rhythm with soft systolic murmur. Pulmonary: Clear to auscultation bilaterally with no crackles, wheezes, or rhonchi. Normal respiratory effort with no use of accessory muscles. Abdomen: Soft, nontender, nondistended. Extremities: Half and half nails. No clubbing, cyanosis. Lower extremity edema bilaterally with venous stasis. Skin: Normal temperature, turgor, and texture Neurological: Cranial nerves grossly intact. Psychiatric: Normal mood and affect. Alert and oriented to person, place, and time. Lab and Diagnostics Result Diagram: 11/15/16 0518 11/17/16 0450 X-Rays, CTs and MRIs . X-RAY CHEST ONE VIEW, PORTABLE IMPRESSION: No acute disease. Dictated by: Thom Bolton M.D. on 11/12/2016 CT BRAIN WITHOUT CONTRAST IMPRESSION: No acute intracranial process. Dictated by: Thom Bolton M.D. on 11/12/2016 MRI BRAIN WITHOUT CONTRAST IMPRESSION: 1. Small acute size subacute posterior right frontal infarct. 2. Moderate periventricular and subcortical white matter chronic microvascular ischemic changes. 3. Mild, diffuse volume loss. 4. 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 Recommend gadolinium enhanced MRI for further characterization of the lesion. Dictated by: Sharri Peters MD, PhD on 11/14/2016 MRA ANGIOGRAM HEAD WITHOUT CONTRAST IMPRESSION: Negative examination within the limitations caused by motion artifact. Dictated by: Sharri Peters MD, PhD on 11/14/2016 US RENAL SONOGRAM IMPRESSION: 1. No evidence of hydronephrosis. Dictated by: Preston Dotson M.D. on 11/14/2016 12-lead ECG ECG Interpretation: Sinus rhythm rate 95 Repeat EKG nl Time: 18:12 Interpreted by: ED physician Normal ECG Interpretation: No acute ischemic changes Cardiac Echo Impressions . Echocardiogram Report Interpretation Summary: The left ventricle is normal in size. The ejection fraction is estimated to be 60-65%. There is no LV thrombus. The right ventricle is normal in size and function. There is moderate mitral regurgitation. There is mild tricuspid regurgitation. The right ventricular systolic pressure is estimated at 24 mmHg assuming a right atrial pressure of 3 mm Hg. Mild atherosclerotic plaque(s) in the aortic arch. Plan Impression 1. Acute rhabdomyolysis. - Last total CK 11/16/2016 was 3000 - Continues to have good urinary output - Continue to encourage oral intake - Continue follow labs 2. Acute kidney injury secondary to #1 - Entering the recovery phase - Good urinary output, able tolerate oral intake - Continue to encourage oral fluids - Continue to monitor closely her urinary output versus fluid intake as there is a 30% mortality in the recovery phase of COLTON 3. Increased anion gap metabolic acidosis. - Ongoing - Continue to monitor 4. Hypertension. - Stable - Continue home meds 5. Hyponatremia - Serum sodium upward trend 129 from 127 - Continue to encourage oral diet and fluids Nephrology attending note: Patient was seen and examined along with Dr. Bacon I agree with the above note and would like to continue to monitor her lab and intake and output is a feeling that she is in the early stages of recovery of renal function. Urine output is sustained address her fluid repletion. Edgar Self DO 11/17/16 1601: Exam Lab and Diagnostics Result Diagram: 11/15/16 0518 11/17/16 0450 Plan Plan: Nephrology attending: Patient was seen and examined along with Dr. Bacon and the case has been thoroughly discussed. Findings and the plan as detailed above which I agree with. MURRAY BACON DO Nov 17, 2016 12:44 Edgar Self DO Nov 17, 2016 16:01
--- NOTE | 2016-11-17 12:47 | NUR ---
CRYSTAL signed by pt's DPOA/ daughter Nyasia over the phone. Pt has baseline confusion and was not able to sign. ROSANNA Thrasher
--- NOTE | 2016-11-17 13:37 | NUR ---
Called Kristen Yañez CM at [place] [phone] and she is approving patient for transfer to Group Home when ready. Updated SENIOR RELATIONSHIP MANAGER and SHAZIA RN
--- NOTE | 2016-11-17 15:58 | PCM.PNMED ---
Subjective Date of Service Nov 17, 2016 Subjective Pt reports SOB resolved. Dec LE swelling. Good appetite. Exam Vital Signs Vital Sign - Last Date Time Temp Pulse Resp B/P Pulse Ox O2 Delivery O2 Flow Rate FiO2 11/17/16 13:06 36.4 58 18 109/67 98 Room Air Intake and Output 11/16/16 11/16/16 11/17/16 Cumulative From/Thru 15:00 23:00 07:00 11/12/16 14:33 - 11/17/16 04:51 Intake Total 2307 ml 1050 ml 49815 ml Output Total 730 ml 1070 ml 9062 ml Balance 1577 ml -20 ml 3831 ml Intake Oral 2237 ml 1050 ml 8544 ml IV Total 70 ml 4349 ml Output Urine Total 729 ml 1070 ml 9061 ml Stool Total 1 ml 1 ml # Voids 1 1 # Bowel Movements 0 3 Exam Gen.: Patient appears to have that delayed responses, and flat affect, she is cooperative and following commands however HEENT: Normocephalic atraumatic, poor dentition, halitosis Lungs: CTAB- imp Heart: No S3-S4 murmurs, regular rate and rhythm Abdomen soft nontender to palpation, both sounds Extremities- +PP- +1-Trace LE Edema Musculoskeletal strength is decreased in the left trust vault clerk and also left lower extremity Neurological: CN II grossly normal, did not tolerate light in eyes. Remarkable for delayed responses, she missed one visual field on the left side, she is able to perform [id number] but however she missed mendoza on the left side, alternative hands test showed no deficits IVs and Medications Medications Reviewed: Medications were reviewed in detail Lab and Diagnostics Result Diagram: 11/15/16 0518 11/17/16 0450 X-Rays, CTs and MRIs . X-RAY CHEST ONE VIEW, PORTABLE IMPRESSION: No acute disease. Dictated by: Thom Bolton M.D. on 11/12/2016 CT BRAIN WITHOUT CONTRAST IMPRESSION: No acute intracranial process. Dictated by: Thom Bolton M.D. on 11/12/2016 MRI BRAIN WITHOUT CONTRAST IMPRESSION: 1. Small acute size subacute posterior right frontal infarct. 2. Moderate periventricular and subcortical white matter chronic microvascular ischemic changes. 3. Mild, diffuse volume loss. 4. 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 Recommend gadolinium enhanced MRI for further characterization of the lesion. Dictated by: Sharri Peters MD, PhD on 11/14/2016 MRA ANGIOGRAM HEAD WITHOUT CONTRAST IMPRESSION: Negative examination within the limitations caused by motion artifact. Dictated by: Sharri Peters MD, PhD on 11/14/2016 US RENAL SONOGRAM IMPRESSION: 1. No evidence of hydronephrosis. Dictated by: Preston Dotson M.D. on 11/14/2016 12-lead ECG ECG Interpretation: Sinus rhythm rate 95 Repeat EKG nl Time: 18:12 Interpreted by: ED physician Normal ECG Interpretation: No acute ischemic changes Cardiac Echo Impressions . Echocardiogram Report Interpretation Summary: The left ventricle is normal in size. The ejection fraction is estimated to be 60-65%. There is no LV thrombus. The right ventricle is normal in size and function. There is moderate mitral regurgitation. There is mild tricuspid regurgitation. The right ventricular systolic pressure is estimated at 24 mmHg assuming a right atrial pressure of 3 mm Hg. Mild atherosclerotic plaque(s) in the aortic arch. Assessment & Plan Pamella Starks is a 81 year old female patient who has been non-compliant with her medications with history of well-controlled schizophrenia, hypertension, hyperlipidemia and depression who presented to the emergency department via ambulance because of generalized weakness, confusion and falls (she was found sitting on floor by daughter). She is being admitted for rhabdomyolysis secondary to her fall. . Syncope/Fall likely secondary to frontal lobe acute/subacute infarct, unknown onset, POA - Cardiac workup has been negative. -- CT Head neg for acute bleeding, MR Brain stroke protocol showed frontal lobe acute/subacute infarct -- US Echo- EF 60-65%. orthostatics negative, -- PT/OT/ST are ordered: PT recommends d/c to SNF, good rehab potential -- Check for tele events, consider holter monitor at d/c - Switch to plavix as she had a stroke while being on ASA. L Ventricle Mass 1 cmm size on MR Brain, POA -- 11/16- Called [facility] what kind of f/u they would recommend: Pager [phone] to page, pushed images. They will review and call back with recs. - Will need repeat imaging, possibly MRI w/ contrast as outpatient. Rhabdomyolysis, present on admission Likely secondary to prolonged time on the floor following her fall - CK >17,000-->>24757->3000. - Discontinued fluids on 11/14, encourage PO intake. - 11/17- Per Nephrology, Dr. Self- pt entering recovery phase, will need close monitoring of I/O, encourage PO intake. Check daily Labs. Recovery phase has high mortality so pt will need to remain until further improvement. Acute kidney injury, present on admission- 05/19 to [facility]. --Initially thought to be due to pre-renal secondary to dehydration and rhabdomyolysis - Creatinine worsening. Baseline 0.66 in 2016 (did not find this in nextgen, unsure where this baseline is from). --Initially, pt is hydrated well but due to concern for overload and worsened kidney function, All fluids stopped 11/14 afternoon during rounding - See Neph recs above. Hyponatremia- new issue, active- - May be 2/2 to diuresis, repeat CMP in AM. - Nephrology following. Acute UTI, poa, resolved. -- Leukocytosis likely due to uti. UA pos, monitor urine cx are NGTD -- UTI- WBC improved today, received 3 days of Ceftriaxone, stopped 11/16. If febrile, resume. - monitor cx Hypertension, chronic, present on admission -Continue home dose of felodipine 10 mg and atenolol 100 mg daily -We will hold losartan and hydrochlorothiazide due to renal dysfunction History of schizophrenia, stable -Continue aripiprazole 10 mg daily and nortriptyline 10 mg daily Elevated troponins, present on admission, resolved. - Troponin is likely elevated due to COLTON Hyperlipidemia, chronic -We will hold statins due to rhabdomyolysis CODE STATUS: Full code DVT prophylaxis: Subcutaneous heparin, SCD Bowel regimen when necessary Patient status: Patient is admitted under inpatient status expected length of stay greater than 2 midnights due to severity of presenting symptoms, risk of adverse events, and complexity of treatment plan. - Pt will eventually be d/c to [facility] when medically cleared. - Have added new medication, Plavix. VTE Prophylaxis: Sub-Q Heparin (Unfractionated), SCDs VTE Mechanical Devices: Intermittant Pneumatic CD Resuscitation Status: CPR: Attempt Resuscitation Ranjeet Kasper MD Nov 17, 2016 15:58 VTE Prophylaxis: Sub-Q Heparin (Unfractionated), SCDs VTE Mechanical Devices: Intermittant Pneumatic CD Resuscitation Status: CPR: Attempt Resuscitation Ranjeet Kasper MD Nov 17, 2016 15:58
--- NOTE | 2016-11-17 16:34 | NUR ---
Evaluation completed. Please go to "Notes" then click on "Assessments and Notes" (bottom left corner of screen). Then select appropriate discipline tab on top of screen.
[2016-11-18] VITALS (7 sets, daily range): BP systolic 119–160; BP diastolic 68–84; PULSE 52–68; RESP 16–20; O2SAT 95–100
[2016-11-18] MEDS: Heparin 5,000 Unit/mL Inj SUBQ SCH ×3 (01:02→16:47)
[2016-11-18 05:33] LABS: BASOPHILS % (AUTO) 0.1 % (0-3); EOSINOPHILS % (AUTO) 0.6 % (0-5); MONOCYTES % (AUTO) 15.7 % (4-12); Mean Corpuscular Hemoglobin 30.2 pg (27.0-35.0); Mean Corpuscular Volume 84.3 fL (81-100); NEUTROPHILS % (AUTO) 51.7 % (40-74); Platelet Count 253 bil/L (150-400)
[2016-11-18] MEDS: ARIPiprazole 10 mg Tablet PO SCH (07:55)
[2016-11-18] MEDS: Nystatin 100,000 Unit/Gm 15 Gm Powder TOPICAL SCH ×2 (07:56→20:35)
[2016-11-18] MEDS: Felodipine 5 mg ER24 Tablet PO SCH (07:56)
--- NOTE | 2016-11-18 09:29 | PCM.PNNEPH ---
Subjective Date of Service Nov 18, 2016 Subjective Overnight: No events reported Today: Urine output ~ 800 mL, total urine output over hte last 24 hrs ~ 1500 mL. Sodium has normalized at 134 from 129 yesterday. BUN/Cr continues to trend down 63/3.3. Exam Vital Signs Vital Sign - Last Date Time Temp Pulse Resp B/P Pulse Ox O2 Delivery O2 Flow Rate FiO2 11/18/16 07:57 36.9 58 20 149/79 100 Room Air Intake and Output 11/17/16 11/17/16 11/18/16 Cumulative From/Thru 15:00 23:00 07:00 11/12/16 14:33 - 11/18/16 04:59 Intake Total 1036 ml 800 ml 96046 ml Output Total 350 ml 823 ml 34780 ml Balance 686 ml -23 ml 4494 ml Intake Oral 1036 ml 800 ml 19075 ml IV Total 4349 ml Output Urine Total 350 ml 823 ml 60340 ml Stool Total 1 ml # Voids 5 6 # Bowel Movements 0 0 3 Exam General: Awake and alert sitting in bed side chair in no acute distress, moderately obese, appropriately interactive. HEENT: Normocephalic, atraumatic. External ears without defect. Moist mucosa. Neck: Supple with full range of motion. No jugular venous distension. Cardiovascular: Regular rate and rhythm with soft systolic murmur. Pulmonary: Clear to auscultation bilaterally with no crackles, wheezes, or rhonchi. Normal respiratory effort with no use of accessory muscles. Abdomen: Soft, nontender, nondistended. Extremities: Half and half nails. No clubbing, cyanosis. Lower extremity edema bilaterally with venous stasis, improving Skin: Normal temperature, turgor, and texture Neurological: Cranial nerves grossly intact. Psychiatric: Normal mood and affect. Alert and oriented to person, place, and time. Lab and Diagnostics Result Diagram: 11/18/1645511/18/16455 X-Rays, CTs and MRIs . X-RAY CHEST ONE VIEW, PORTABLE IMPRESSION: No acute disease. Dictated by: Thom Bolton M.D. on 11/12/2016 CT BRAIN WITHOUT CONTRAST IMPRESSION: No acute intracranial process. Dictated by: Thom Bolton M.D. on 11/12/2016 MRI BRAIN WITHOUT CONTRAST IMPRESSION: 1. Small acute size subacute posterior right frontal infarct. 2. Moderate periventricular and subcortical white matter chronic microvascular ischemic changes. 3. Mild, diffuse volume loss. 4. 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 Recommend gadolinium enhanced MRI for further characterization of the lesion. Dictated by: Sharri Peters MD, PhD on 11/14/2016 MRA ANGIOGRAM HEAD WITHOUT CONTRAST IMPRESSION: Negative examination within the limitations caused by motion artifact. Dictated by: Sharri Peters MD, PhD on 11/14/2016 US RENAL SONOGRAM IMPRESSION: 1. No evidence of hydronephrosis. Dictated by: Preston Dotson M.D. on 11/14/2016 12-lead ECG ECG Interpretation: Sinus rhythm rate 95 Repeat EKG nl Time: 18:12 Interpreted by: ED physician Normal ECG Interpretation: No acute ischemic changes Cardiac Echo Impressions . Echocardiogram Report Interpretation Summary: The left ventricle is normal in size. The ejection fraction is estimated to be 60-65%. There is no LV thrombus. The right ventricle is normal in size and function. There is moderate mitral regurgitation. There is mild tricuspid regurgitation. The right ventricular systolic pressure is estimated at 24 mmHg assuming a right atrial pressure of 3 mm Hg. Mild atherosclerotic plaque(s) in the aortic arch. Plan Impression 1. Acute rhabdomyolysis. - Totral CK today 631 - Continues to have good urinary output - Continue to encourage oral intake - Continue follow labs 2. Acute kidney injury secondary to #1 - Entering the recovery phase, BUN/creatinine continued to trend down - Good urinary output, able tolerate oral intake - Continue to encourage oral fluids - Continue to monitor closely her urinary output versus fluid intake as there is a 30% mortality in the recovery phase of COLTON 3. Increased anion gap metabolic acidosis. - Ongoing - Continue to monitor 4. Hypertension. - Stable - Continue home meds 5. Hyponatremia - Serum sodium upward trend 134 from 129 - Continue to encourage oral diet and fluids MURRAY REYNA DO Nov 18, 2016 09:29
--- NOTE | 2016-11-18 11:03 | NUR ---
INTERMEDIATE TRANSFER: Kristen Yañez CM at [facility] has approved patient for transfer when ready. Updated MACHINE REPAIRMAN and UR RN
--- NOTE | 2016-11-18 12:26 | NUR ---
Social Work: Continued Discharge Planning/Multidisciplinary Rounds D: EMR reviewed. Pt is on day 6 of hospitalization. Pt discussed in multidisciplinary rounds. Pt is not medically stable for discharge today. Per MD, Nephrology has not signed off on pt and pt is likely to remain hospitalized for 2-3 more days. Pt has been accepted at [facility] with Dr. Mercado to follow pending [facility] authorization. Paperwork in pt's chart, PASRR in folder. Pt updated of plan at bedside. T/C updating Tor at [facility] [place] regarding pt's status. Tor agreeable to hold pt's spot until time of discharge. T/C updating pt's daughter Nyasia that pt will remain in hospital for 2-3 more days and that [facility] [place] [place] will still have a place for pt when she is ready for discharge. All updated and agreeable to plan. SW will continue to follow. A: Pt for whom SNF is medically necessary P: Pt to discharge to [facility] [place] with Dr. Mercado to follow via wheelchair van when medically stable - anticipate 2-3 more days pending Nephrology. Paperwork in pt's chart, PASRR in folder. Pt and pt's daughter all updated and agreeable to plan. Tor at [facility] [place] [place] updated. SW will continue to follow. ROSANNA James
--- NOTE | 2016-11-18 13:58 | PCM.PNMED ---
Subjective Date of Service Nov 18, 2016 Subjective No overnight events. Pt has no new c/o Exam Vital Signs Vital Sign - Last Date Time Temp Pulse Resp B/P Pulse Ox O2 Delivery O2 Flow Rate FiO2 11/18/16 13:18 36.4 60 18 160/81 98 Room Air Intake and Output 11/17/16 11/17/16 11/18/16 Cumulative From/Thru 15:00 23:00 07:00 11/12/16 14:33 - 11/18/16 04:59 Intake Total 1036 ml 800 ml 02000 ml Output Total 350 ml 823 ml 47977 ml Balance 686 ml -23 ml 4494 ml Intake Oral 1036 ml 800 ml 83397 ml IV Total 4349 ml Output Urine Total 350 ml 823 ml 08806 ml Stool Total 1 ml # Voids 5 6 # Bowel Movements 0 0 3 Exam Gen.: Patient appears to have that delayed responses, and flat affect, she is cooperative and following commands however HEENT: Normocephalic atraumatic, poor dentition, halitosis Lungs: CTAB- imp Heart: No S3-S4 murmurs, regular rate and rhythm Abdomen soft nontender to palpation, both sounds Extremities- +PP- LE Edema- resolved. Musculoskeletal strength is decreased in the left director of radiology and also left lower extremity Neurological: CN II grossly normal, did not tolerate light in eyes. Remarkable for delayed responses, she missed one visual field on the left side, she is able to perform [id number] but however she missed mendoza on the left side, alternative hands test showed no deficits IVs and Medications Medications Reviewed: Medications were reviewed in detail Lab and Diagnostics Result Diagram: 11/18/166 11/18/16 0456 X-Rays, CTs and MRIs . X-RAY CHEST ONE VIEW, PORTABLE IMPRESSION: No acute disease. Dictated by: Thom Bolton M.D. on 11/12/2016 CT BRAIN WITHOUT CONTRAST IMPRESSION: No acute intracranial process. Dictated by: Thom Bolton M.D. on 11/12/2016 MRI BRAIN WITHOUT CONTRAST IMPRESSION: 1. Small acute size subacute posterior right frontal infarct. 2. Moderate periventricular and subcortical white matter chronic microvascular ischemic changes. 3. Mild, diffuse volume loss. 4. 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 Recommend gadolinium enhanced MRI for further characterization of the lesion. Dictated by: Sharri Peters MD, PhD on 11/14/2016 MRA ANGIOGRAM HEAD WITHOUT CONTRAST IMPRESSION: Negative examination within the limitations caused by motion artifact. Dictated by: Sharri Peters MD, PhD on 11/14/2016 US RENAL SONOGRAM IMPRESSION: 1. No evidence of hydronephrosis. Dictated by: Preston Dotson M.D. on 11/14/2016 12-lead ECG ECG Interpretation: Sinus rhythm rate 95 Repeat EKG nl Time: 18:12 Interpreted by: ED physician Normal ECG Interpretation: No acute ischemic changes Cardiac Echo Impressions . Echocardiogram Report Interpretation Summary: The left ventricle is normal in size. The ejection fraction is estimated to be 60-65%. There is no LV thrombus. The right ventricle is normal in size and function. There is moderate mitral regurgitation. There is mild tricuspid regurgitation. The right ventricular systolic pressure is estimated at 24 mmHg assuming a right atrial pressure of 3 mm Hg. Mild atherosclerotic plaque(s) in the aortic arch. Assessment & Plan Pamella Starks is a 81 year old female patient who has been non-compliant with her medications with history of well-controlled schizophrenia, hypertension, hyperlipidemia and depression who presented to the emergency department via ambulance because of generalized weakness, confusion and falls (she was found sitting on floor by daughter). She is being admitted for rhabdomyolysis secondary to her fall. . Syncope/Fall likely secondary to frontal lobe acute/subacute infarct, unknown onset, POA - Cardiac workup has been negative. -- CT Head neg for acute bleeding, MR Brain stroke protocol showed frontal lobe acute/subacute infarct -- US Echo- EF 60-65%. orthostatics negative, -- PT/OT/ST are ordered: PT recommends d/c to SNF, good rehab potential -- Check for tele events, consider holter monitor at d/c - Switch to plavix as she had a stroke while being on ASA. L Ventricle Mass 1 cmm size on MR Brain, POA -- 11/16- Called [facility] what kind of f/u they would recommend: Pager [phone] to page, pushed images. They will review and call back with recs. - Will need repeat imaging, possibly MRI w/ contrast as outpatient. Rhabdomyolysis, present on admission Likely secondary to prolonged time on the floor following her fall - CK >17,000-->>45057->3000. - Discontinued fluids on 11/14, encourage PO intake. - 11/17- Per Nephrology, Dr. Self- pt entering recovery phase, will need close monitoring of I/O, encourage PO intake. Check daily Labs. Recovery phase has high mortality so pt will need to remain until further improvement. Acute kidney injury, present on admission- 05/19 to [facility]. --Initially thought to be due to pre-renal secondary to dehydration and rhabdomyolysis - Creatinine worsening. Baseline 0.66 in 2016 (did not find this in nextgen, unsure where this baseline is from). --Initially, pt is hydrated well but due to concern for overload and worsened kidney function, All fluids stopped 11/14 afternoon during rounding - See Neph recs above. Hypertension, chronic, present on admission - Pt getting hm meds Atenolol, Felodipine. - hydrochlorothiazide and Losartan held due to renal dysfunction - Nephrology following, will discuss regarding when can resume. Hyponatremia- new issue, resolved. - May have been 2/2 to diuresis, repeat CMP in AM. Enourage PO intake. - Nephrology following. Acute UTI, poa, resolved. -- Leukocytosis likely due to uti. UA pos, monitor urine cx are NGTD -- UTI- WBC improved today, received 3 days of Ceftriaxone, stopped 11/16. If febrile, resume. - Blood and Urine Cx- no growth. History of schizophrenia, stable -Continue aripiprazole 10 mg daily and nortriptyline 10 mg daily Elevated troponins, present on admission, resolved. - Troponin is likely elevated due to COLTON Hyperlipidemia, chronic -We will hold statins due to rhabdomyolysis Patient status: Patient is admitted under inpatient status expected length of stay greater than 2 midnights due to severity of presenting symptoms, risk of adverse events, and complexity of treatment plan. - Pt will eventually be d/c to [facility] when medically cleared. - Have added new medication, Plavix. VTE Prophylaxis: Sub-Q Heparin (Unfractionated), SCDs VTE Mechanical Devices: Intermittant Pneumatic CD Resuscitation Status: CPR: Attempt Resuscitation Ranjeet Kasper MD Nov 18, 2016 13:58
--- NOTE | 2016-11-18 18:25 | NUR ---
ACTIVITY Patient is alert and oriented X 4. Forgetful. Denies pain. Tolerating liquids PO and her diet well. Denies nausea. No emesis noted. Denies SOB. Patient has been able to get OOB and ambulate to the chair with SBA and the FWW. Patient has been sitting in the chair for her meals. Tolerated activity well. Voiding without any problems.
[2016-11-19 00:57] VITALS: BP 138/76; PULSE 66; RESP 16; O2SAT 99
[2016-11-19] MEDS: Heparin 5,000 Unit/mL Inj SUBQ SCH ×3 (01:09→16:17)
--- NOTE | 2016-11-19 05:10 | NUR ---
Activity Pt has been up to BR many times, voiding well and has had episodes of incontinence. Pt being offered assistance every 2hrs to encourage continence. Pt is A/O x4, making needs known. Denies pain, NV. Tolerating PO intake well. Care continues
[2016-11-19 05:41] LABS: BASOPHILS % (AUTO) 0.1 % (0-3); EOSINOPHILS % (AUTO) 0.9 % (0-5); MONOCYTES % (AUTO) 16.2 % (4-12); Mean Corpuscular Hemoglobin 30.1 pg (27.0-35.0); Mean Corpuscular Volume 88.3 fL (81-100); NEUTROPHILS % (AUTO) 46.3 % (40-74); Platelet Count 249 bil/L (150-400)
[2016-11-19 06:17] VITALS: BP 125/74; PULSE 63; RESP 18; O2SAT 99
[2016-11-19 06:57] LABS: Magnesium 1.4 mg/dL (1.6-2.6)
[2016-11-19] MEDS ORDERED: Magnesium Sulf 2 Gm/50mL Water 2 GM in IV Premix 1 EACH IV ONE (07:35)
[2016-11-19] MEDS ORDERED: 0.9% Sodium Chloride 250 ML ONE (08:41)
[2016-11-19] MEDS: ARIPiprazole 10 mg Tablet PO SCH (08:45)
[2016-11-19] MEDS: Felodipine 5 mg ER24 Tablet PO SCH (08:46)
[2016-11-19] MEDS: Nystatin 100,000 Unit/Gm 15 Gm Powder TOPICAL SCH ×2 (08:47→21:42)
[2016-11-19 09:27] VITALS: BP 131/83; PULSE 68; RESP 19; O2SAT 100
--- NOTE | 2016-11-19 11:44 | PCM.PNNEPH ---
Subjective Date of Service Nov 19, 2016 Subjective Patient's renal function continues to improve. She has hand [address] 25 [address]- brown with 1961 out already this morning. Her sodium is 139 potassium 4.6 chloride 100 bicarbonate 26 BUN and creatinine were 33 and 2.53 magnesium is 1.4. The patient has no new complaints. Exam Vital Signs Vital Sign - Last Date Time Temp Pulse Resp B/P Pulse Ox O2 Delivery O2 Flow Rate FiO2 11/19/16 09:27 36.1 68 19 131/83 100 Room Air Intake and Output 11/18/16 11/18/16 11/19/16 Cumulative From/Thru 15:00 23:00 07:00 11/12/16 14:33 - 11/19/16 06:36 Intake Total 920 ml 800 ml 13899 ml Output Total 1687 ml 1961 ml 45313 ml Balance -767 ml -1161 ml 2566 ml Intake Oral 920 ml 800 ml 10898 ml IV Total 4349 ml Output Urine Total 1687 ml 1961 ml 49328 ml Stool Total 1 ml # Voids 6 # Bowel Movements 0 0 3 Exam Neck is supple without adenopathy, thyromegaly, or jugular venous distention. Lungs are clear to auscultation. Heart is regular rhythmic with a soft systolic murmur. Abdomen is soft without any tenderness rebound or guarding masses or hepatosplenomegaly. She does not show any evidence of any clubbing cyanosis or edema. Skin turgor is good. Lab and Diagnostics Result Diagram: 11/19/16 0510 11/19/16 0510 X-Rays, CTs and MRIs . X-RAY CHEST ONE VIEW, PORTABLE IMPRESSION: No acute disease. Dictated by: Thom Bolton M.D. on 11/12/2016 CT BRAIN WITHOUT CONTRAST IMPRESSION: No acute intracranial process. Dictated by: Thom Bolton M.D. on 11/12/2016 MRI BRAIN WITHOUT CONTRAST IMPRESSION: 1. Small acute size subacute posterior right frontal infarct. 2. Moderate periventricular and subcortical white matter chronic microvascular ischemic changes. 3. Mild, diffuse volume loss. 4. 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 Recommend gadolinium enhanced MRI for further characterization of the lesion. Dictated by: Sharri Peters MD, PhD on 11/14/2016 MRA ANGIOGRAM HEAD WITHOUT CONTRAST IMPRESSION: Negative examination within the limitations caused by motion artifact. Dictated by: Sharri Peters MD, PhD on 11/14/2016 US RENAL SONOGRAM IMPRESSION: 1. No evidence of hydronephrosis. Dictated by: Preston Dotson M.D. on 11/14/2016 12-lead ECG ECG Interpretation: Sinus rhythm rate 95 Repeat EKG nl Time: 18:12 Interpreted by: ED physician Normal ECG Interpretation: No acute ischemic changes Cardiac Echo Impressions . Echocardiogram Report Interpretation Summary: The left ventricle is normal in size. The ejection fraction is estimated to be 60-65%. There is no LV thrombus. The right ventricle is normal in size and function. There is moderate mitral regurgitation. There is mild tricuspid regurgitation. The right ventricular systolic pressure is estimated at 24 mmHg assuming a right atrial pressure of 3 mm Hg. Mild atherosclerotic plaque(s) in the aortic arch. Plan Impression Impression #1 acute kidney injury secondary to rhabdomyolysis which is resolving #2 metabolic acidosis #3 hypomagnesemia and #4 hypertension benign Recommendations #1 if it is up for probable hemorrhoid for 2 g mag rider. We need to continue to follow her lab and intake and output. From my point of view she can probably be discharged on Monday. Since her renal function is almost back to normal sinus at this point. Should you have any problems or any questions between now discharged please do not hesitate to contact us. Once again taking for this kind consultation. Edgar Self DO Nov 19, 2016 11:44
--- NOTE | 2016-11-19 13:47 | PCM.PNMED ---
Subjective Date of Service Nov 19, 2016 Subjective No overnight events. Eating well. No SOB w/ exertion. Exam Vital Signs Vital Sign - Last Date Time Temp Pulse Resp B/P Pulse Ox O2 Delivery O2 Flow Rate FiO2 11/19/16 12:47 Room Air 11/19/16 09:27 36.1 68 19 131/83 100 Intake and Output 11/18/16 11/18/16 11/19/16 Cumulative From/Thru 15:00 23:00 07:00 11/12/16 14:33 - 11/19/16 06:36 Intake Total 920 ml 800 ml 65773 ml Output Total 1687 ml 1961 ml 41345 ml Balance -767 ml -1161 ml 2566 ml Intake Oral 920 ml 800 ml 51520 ml IV Total 4349 ml Output Urine Total 1687 ml 1961 ml 84934 ml Stool Total 1 ml # Voids 6 # Bowel Movements 0 0 3 Exam Gen.: Patient appears to have that delayed responses, and flat affect, she is cooperative and following commands however HEENT: Normocephalic atraumatic, poor dentition, halitosis Lungs: CTAB Heart: No S3-S4 murmurs, regular rate and rhythm Abdomen soft nontender to palpation, both sounds Extremities- +PP- LE Edema- resolved. 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 Remarkable for delayed responses, she missed one visual field on the left side, she is able to perform [id number] but however she missed mendoza on the left side, alternative hands test showed no deficits IVs and Medications Medications Reviewed: Medications were reviewed in detail Lab and Diagnostics Result Diagram: 11/19/16 0510 11/19/16 0510 X-Rays, CTs and MRIs . X-RAY CHEST ONE VIEW, PORTABLE IMPRESSION: No acute disease. Dictated by: Thom Bolton M.D. on 11/12/2016 CT BRAIN WITHOUT CONTRAST IMPRESSION: No acute intracranial process. Dictated by: Thom Bolton M.D. on 11/12/2016 MRI BRAIN WITHOUT CONTRAST IMPRESSION: 1. Small acute size subacute posterior right frontal infarct. 2. Moderate periventricular and subcortical white matter chronic microvascular ischemic changes. 3. Mild, diffuse volume loss. 4. 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 Recommend gadolinium enhanced MRI for further characterization of the lesion. Dictated by: Sharri Peters MD, PhD on 11/14/2016 MRA ANGIOGRAM HEAD WITHOUT CONTRAST IMPRESSION: Negative examination within the limitations caused by motion artifact. Dictated by: Sharri Peters MD, PhD on 11/14/2016 US RENAL SONOGRAM IMPRESSION: 1. No evidence of hydronephrosis. Dictated by: Preston Dotson M.D. on 11/14/2016 12-lead ECG ECG Interpretation: Sinus rhythm rate 95 Repeat EKG nl Time: 18:12 Interpreted by: ED physician Normal ECG Interpretation: No acute ischemic changes Cardiac Echo Impressions . Echocardiogram Report Interpretation Summary: The left ventricle is normal in size. The ejection fraction is estimated to be 60-65%. There is no LV thrombus. The right ventricle is normal in size and function. There is moderate mitral regurgitation. There is mild tricuspid regurgitation. The right ventricular systolic pressure is estimated at 24 mmHg assuming a right atrial pressure of 3 mm Hg. Mild atherosclerotic plaque(s) in the aortic arch. Assessment & Plan Pamella Starks is a 81 year old female patient who has been non-compliant with her medications with history of well-controlled schizophrenia, hypertension, hyperlipidemia and depression who presented to the emergency department via ambulance because of generalized weakness, confusion and falls (she was found sitting on floor by daughter). She is being admitted for rhabdomyolysis secondary to her fall and resulting COLTON. Syncope/Fall likely secondary to frontal lobe acute/subacute infarct, unknown onset, POA - Cardiac workup has been negative. -- CT Head neg for acute bleeding, MR Brain stroke protocol showed frontal lobe acute/subacute infarct -- US Echo- EF 60-65%. orthostatics negative, -- PT/OT/ST are ordered: PT recommends d/c to SNF, good rehab potential -- No events, d/cd tele monitoring. - Switched to plavix as she had a stroke while being on ASA. 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 They will review and call back with recs. - Will need repeat imaging, possibly MRI w/ contrast as outpatient. Acute kidney injury, present on admission- 2/2 to [facility]. No known hx of CKD. --Initially thought to be due to pre-renal secondary to dehydration and rhabdomyolysis --Initially, was tx w/ IVF. All fluids stopped 11/14 as felt pt was now hypervolemic at prerenal component of COLTON had been addressed. - Per Nephrology, Dr. Self- pt entering recovery phase, will need close monitoring of I/O, encourage PO intake. Check daily Labs. Recovery phase has high mortality. - Given Scr has imp from 4.53 to 2.56, she will be cleared for discharge MondayNov 21 from Nephro perspective as long this trend continued. Rhabdomyolysis, present on admission, resolved. Likely secondary to prolonged time on the floor following her fall - CK >17,000-->>30650->3000->631 - Discontinued fluids on 11/14, encourage PO intake. Hypertension, chronic, present on admission - Pt getting hm meds Atenolol, Felodipine. Renal dosing of Atenolol 100->25mg per pharmacy. Titrate accordingly. - hydrochlorothiazide and Losartan held due to renal dysfunction - Reintroduce BP meds and previous doses as renal function improves. Hyponatremia- new issue, resolved. - May have been 2/2 to diuresis. Enourage PO intake. Acute UTI, poa, resolved. -- Leukocytosis likely due to uti. UA pos, monitor urine cx are NGTD -- UTI- WBC improved today, received 3 days of Ceftriaxone, stopped 11/16. If febrile, resume. - Blood and Urine Cx- no growth. History of schizophrenia, stable -Continue aripiprazole 10 mg daily and nortriptyline 10 mg daily Elevated troponins, present on admission, resolved. - Troponin is likely elevated due to COLTON Hyperlipidemia, chronic -We will hold statins due to rhabdomyolysis Patient status: Patient is admitted under inpatient status expected length of stay greater than 2 midnights due to severity of presenting symptoms, risk of adverse events, and complexity of treatment plan. - If renal function continued to improve will be medically cleared for discharge MondayNov 21 to [facility]. - Have added new medication, Plavix. - Hydrochlorothiazide and Losartan held due to renal dysfunction - Renal dosing of Atenolol 100->25mg per pharmacy. Titrate accordingly. - Reintroduce BP meds and previous doses as renal function improves and if BP is elevated. - Will need close monitoring of I/O, encourage PO intake. Check daily Labs. 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
[2016-11-19 16:22] VITALS: BP 119/79; PULSE 65; RESP 18; O2SAT 99
[2016-11-19 20:08] VITALS: BP 145/79; PULSE 67; RESP 16; O2SAT 99
--- NOTE | 2016-11-20 03:24 | NUR ---
Rash On initial assessment, patient presented with a red rash on cheeks, anterior neck, chin, bilateral arms, and bilateral knee and upper calves. Patient denied any itching or pain. Rash felt warm to the touch. Patients hands and feet were cold to the touch, with hands and feet appearing edematous. Dr. Celso xiong paged regarding rash. VSS. Call light within reach. Care continues.
--- NOTE | 2016-11-20 03:31 | NUR ---
Rash resolved At 0300, during an hourly rounding, rash appeared to be resolved. Patient denied any pain or itching.
[2016-11-20 03:55] VITALS: BP 138/74; PULSE 61; RESP 18; O2SAT 98
--- NOTE | 2016-11-20 06:21 | NUR ---
Rash Returns At 0600, patient has red rash over entire face, arms and lower extremities. Patient denies any itching or pain. Will relay to day RN.
[2016-11-20 06:54] LABS: Magnesium 1.9 mg/dL (1.6-2.6)
[2016-11-20] MEDS: ARIPiprazole 10 mg Tablet PO SCH (10:26)
[2016-11-20] MEDS: Felodipine 5 mg ER24 Tablet PO SCH (10:27)
[2016-11-20] MEDS: Heparin 5,000 Unit/mL Inj SUBQ SCH ×3 (10:28→18:12)
[2016-11-20] MEDS: Nystatin 100,000 Unit/Gm 15 Gm Powder TOPICAL SCH ×2 (10:28→21:27)
[2016-11-20 11:49] VITALS: BP 147/71; PULSE 66; RESP 16; O2SAT 100
--- NOTE | 2016-11-20 13:30 | PCM.PNMED ---
Subjective Date of Service Nov 20, 2016 Subjective No overnight events. Pt had facial rash return last night. Denies any SOB, LE swelling. Exam Vital Signs Vital Sign - Last Date Time Temp Pulse Resp B/P Pulse Ox O2 Delivery O2 Flow Rate FiO2 11/20/16 11:49 36.5 66 16 147/71 100 Room Air Intake and Output 11/19/16 11/19/16 11/20/16 Cumulative From/Thru 15:00 23:00 07:00 11/12/16 14:33 - 11/20/16 06:23 Intake Total 74 ml 800 ml 700 ml 46971 ml Output Total 781 ml 1082 ml 06304 ml Balance 74 ml 19 ml -382 ml 2277 ml Intake Oral 800 ml 700 ml 12347 ml IV Total 74 ml 4423 ml Output Urine Total 781 ml 1082 ml 50999 ml Stool Total 1 ml # Voids 6 # Bowel Movements 0 3 Exam Gen.: Patient appears to have that delayed responses, and flat affect, she is cooperative and following commands however HEENT: Normocephalic atraumatic, poor dentition, halitosis Lungs: CTAB Heart: No S3-S4 murmurs, regular rate and rhythm Abdomen soft nontender to palpation, both sounds Extremities- +PP- LE Edema- resolved. 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 Remarkable for delayed responses, she missed one visual field on the left side, she is able to perform [id number] but however she missed mendoza on the left side, alternative hands test showed no deficits IVs and Medications Medications Reviewed: Medications were reviewed in detail Lab and Diagnostics Result Diagram: 11/19/16 0510 11/20/16 0530 X-Rays, CTs and MRIs . X-RAY CHEST ONE VIEW, PORTABLE IMPRESSION: No acute disease. Dictated by: Thom Bolton M.D. on 11/12/2016 CT BRAIN WITHOUT CONTRAST IMPRESSION: No acute intracranial process. Dictated by: Thom Bolton M.D. on 11/12/2016 MRI BRAIN WITHOUT CONTRAST IMPRESSION: 1. Small acute size subacute posterior right frontal infarct. 2. Moderate periventricular and subcortical white matter chronic microvascular ischemic changes. 3. Mild, diffuse volume loss. 4. 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 Recommend gadolinium enhanced MRI for further characterization of the lesion. Dictated by: Sharri Peters MD, PhD on 11/14/2016 MRA ANGIOGRAM HEAD WITHOUT CONTRAST IMPRESSION: Negative examination within the limitations caused by motion artifact. Dictated by: Sharri Peters MD, PhD on 11/14/2016 US RENAL SONOGRAM IMPRESSION: 1. No evidence of hydronephrosis. Dictated by: Preston Dotson M.D. on 11/14/2016 12-lead ECG ECG Interpretation: Sinus rhythm rate 95 Repeat EKG nl Time: 18:12 Interpreted by: ED physician Normal ECG Interpretation: No acute ischemic changes Cardiac Echo Impressions . Echocardiogram Report Interpretation Summary: The left ventricle is normal in size. The ejection fraction is estimated to be 60-65%. There is no LV thrombus. The right ventricle is normal in size and function. There is moderate mitral regurgitation. There is mild tricuspid regurgitation. The right ventricular systolic pressure is estimated at 24 mmHg assuming a right atrial pressure of 3 mm Hg. Mild atherosclerotic plaque(s) in the aortic arch. Assessment & Plan Pamella Starks is a 81 year old female patient who has been non-compliant with her medications with history of well-controlled schizophrenia, hypertension, hyperlipidemia and depression who presented to the emergency department via ambulance because of generalized weakness, confusion and falls (she was found sitting on floor by daughter). She is being admitted for rhabdomyolysis secondary to her fall and resulting COLTON which has been slowly improving. Syncope/Fall likely secondary to frontal lobe acute/subacute infarct, unknown onset, POA - Cardiac workup has been negative. -- CT Head neg for acute bleeding, MR Brain stroke protocol showed frontal lobe acute/subacute infarct -- US Echo- EF 60-65%. orthostatics negative, -- PT/OT/ST are ordered: PT recommends d/c to SNF, good rehab potential -- No events, d/cd tele monitoring. - Switched to plavix as she had a stroke while being on ASA. 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 - Will need repeat imaging with MRI w/ contrast as outpatient once COLTON resolves. Acute kidney injury, present on admission- 2/2 to [facility]. No known hx of CKD. --Initially thought to be due to pre-renal secondary to dehydration and rhabdomyolysis --Initially, was tx w/ IVF. All fluids stopped 11/14 as felt pt was now hypervolemic at prerenal component of COLTON had been addressed. - Per Nephrology, Dr. Self- pt entering recovery phase, will need close monitoring of I/O, encourage PO intake. Check daily Labs. Recovery phase has high mortality. - Given Scr has imp from 4.53 and now <2, she will be cleared for discharge MondayNov 21 from Nephro perspective as long this trend continued. Rhabdomyolysis, present on admission, resolved. Likely secondary to prolonged time on the floor following her fall - CK >17,000-->>33786->3000->631 - Discontinued fluids on 11/14, encourage PO intake. Hypertension, chronic, present on admission - Pt getting hm meds Atenolol, Felodipine. - Renal dosing of Atenolol 100->25mg per pharmacy. Titrate accordingly. - hydrochlorothiazide and Losartan held due to renal dysfunction, need to restart at SNF. - Reintroduce BP meds HCTZ and Lisinopril and can increase dose of Atenolol up to 100 mg again if needed as renal function improves. Hyponatremia- new issue, resolved. - May have been 2/2 to diuresis. Enourage PO intake. Acute UTI, poa, resolved. -- Leukocytosis likely due to uti. UA pos, monitor urine cx are NGTD -- UTI- WBC improved today, received 3 days of Ceftriaxone, stopped 11/16. If febrile, resume. - Blood and Urine Cx- no growth. History of schizophrenia, stable -Continue aripiprazole 10 mg daily and nortriptyline 10 mg daily Elevated troponins, present on admission, resolved. - Troponin is likely elevated due to COLTON Hyperlipidemia, chronic -We will hold statins due to rhabdomyolysis Patient status: Patient is admitted under inpatient status expected length of stay greater than 2 midnights due to severity of presenting symptoms, risk of adverse events, and complexity of treatment plan. - If renal function continued to improve will be medically cleared for discharge MondayNov 21 to [facility]- [facility]. - Have added new medication, Plavix. - Reintroduce BP meds HCTZ and Lisinopril and can increase dose of Atenolol up to 100 mg again if needed as renal function improves. - Will need close monitoring of I/O, encourage PO intake. Check daily Labs. - Follow up with your PCP, will need repeat imaging with MRI of [place] with contrast for Left Ventricle 1 cm mass on MR Brain, once renal function improved. VTE Prophylaxis: Sub-Q Heparin (Unfractionated), SCDs VTE Mechanical Devices: Intermittant Pneumatic CD Resuscitation Status: CPR: Attempt Resuscitation Ranjeet Kasper MD Nov 20, 2016 13:30
--- NOTE | 2016-11-20 13:33 | PCM.DIMED ---
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 No known hx of CKD. Rhabdomyolysis, present on admission, resolved. Hypertension, chronic, present on admission Hyponatremia- new issue, resolved. Acute UTI, poa, resolved. History of schizophrenia, stable Elevated troponins, present on admission, resolved. Hyperlipidemia, chronic Medication Instructions Additional med instructions - Have added new medication, Plavix. - Held Lovastatin, can resume after follow up with PCP. - Reintroduce BP meds HCTZ and Lisinopril and can increase dose of Atenolol up to 100 mg again if needed as renal function improves. Patient Instructions Patient Instructions Patient status: Patient is admitted under inpatient status expected length of stay greater than 2 midnights due to severity of presenting symptoms, risk of adverse events, and complexity of treatment plan. - If renal function continued to improve will be medically cleared for discharge MondayNov 21 to [facility]. - Will need close monitoring of Intake/Output, encourage PO intake. Check daily Renal Labs to ensure Serum Creatinine is improving. - Follow-up plan Follow up with your PCP, Dr. King after discharge from SNF. Will need repeat imaging with MRI of [place] with contrast for Left Ventricle 1 cm mass on MR Brain, once renal function improved. Mikal Prasad 11/21/16 1027: Ranjeet Kasper MD Nov 20, 2016 13:33 Mikal Prasad Nov 21, 2016 10:27
[2016-11-20] MEDS ORDERED: CLOP75TA28 PO (13:36)
[2016-11-20] MEDS ORDERED: ATEN25TA PO (13:36)
--- NOTE | 2016-11-20 14:34 | NUR ---
TICKET MARKER attempted to see pt. for ongoing cognitive-communication intervention. However, pt. declined. Reporting she had PT services this am and was still tired from that session. Continue to recommend TICKET MARKER services for cog-communication deficits following discharge. TICKET MARKER to follow.
--- NOTE | 2016-11-20 16:53 | NUR ---
Mentation Patient alert, cooperative with care sitting up in chair t/o day. Patient denies pain. Patient did ask how kidney function was doing and hopes to go to SNF for care and then return home. No rash noted this afternoon . Addendum: 11/20/16 at 1842 by PADMA CARTWRIGHT RN Patient now has noticeable red rash to nose and cheek area. Denies itching or pain
[2016-11-20 21:04] VITALS: BP 126/69; PULSE 73; RESP 16; O2SAT 98
--- NOTE | 2016-11-20 23:06 | NUR ---
Rash On initial assessment, a non raised, red rash was visible on patients face, neck, arms, and upper chest area. Patient denies any itching or changing sensation. Patient denies pain. VSS. Call light within reach. Care continues.
[2016-11-21] MEDS: Heparin 5,000 Unit/mL Inj SUBQ SCH ×2 (00:45→10:38)
[2016-11-21 06:30] VITALS: BP 127/78; PULSE 60; RESP 18; O2SAT 100
--- NOTE | 2016-11-21 10:28 | NUR ---
HALFWAY TRANSFER : Spoke with Kristen Yañez [phone] CM at [facility] and she is still approving [facility]. Updated CUSTOMER PRICING MANAGER
--- NOTE | 2016-11-21 10:36 | PCM.DIMED ---
Discharge Instructions Date of Service Nov 21, 2016 Dates of Hospitalization Nov 12, 2016 at 20:14 Discharge Diagnosis Discharge Diagnosis # Acute syncope/fall, present on admission # Small acute/subacute posterior right frontal lobe brain infarct. 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 Recommend gadolinium enhanced MRI as outpatient for further characterization of the lesion, when renal function back to normal. # Acute kidney injury, present on admission. Improving # Acute rhabdomyolysis, present on admission, resolved. # Chronic Hypertension. Stable. # Acute Hyponatremia, not present on admission. Resolved. # Suspected acute UTI on admission. Ruled out with negative urine culture. # History of schizophrenia, stable # Elevated cardiac enzymes (Troponin), present on admission. Likely demand ischemia and amplification due to acute kidney injury. # Chronic Hyperlipidemia Medication Instructions Additional med instructions - Have added new medication, Plavix. - Held Lovastatin, can resume after follow up with PCP. - Reintroduce BP meds HCTZ and Lisinopril and can increase dose of Atenolol up to 100 mg again if needed as renal function improves. Diet Discharge Diet: Low fat, Low Sodium, Heart Healthy Activity Discharge Activity: Other (as tolerated and per physical therapy) Patient Instructions Patient Instructions Will need close monitoring of Intake/Output, encourage PO intake. Followup BMP in 2-3 days Follow-up plan 1. Followup with primary care provider (Dr. King) in 3-7 days 2. Will need repeat MRI with contrast of brain once renal function is back to normal to assess the Left Ventricle mass. Followup with your primary care provider to set this up. Follow-up Provider: Derian King MD Follow-up with PCP in: 1 week Mikal Prasad Nov 21, 2016 10:36
[2016-11-21] MEDS: ARIPiprazole 10 mg Tablet PO SCH (10:37)
[2016-11-21] MEDS: Felodipine 5 mg ER24 Tablet PO SCH (10:37)
[2016-11-21] MEDS ORDERED: ATOR20TA PO (10:37)
[2016-11-21] MEDS: Nystatin 100,000 Unit/Gm 15 Gm Powder TOPICAL SCH (10:38)
[2016-11-21 13:25] VITALS: BP 134/74; PULSE 73; RESP 18; O2SAT 97
--- NOTE | 2016-11-21 15:00 | NUR ---
Social Work: Discharge/Multidisciplinary Rounds D: EMR reviewed. Pt is on day 9 of hospitalization. Pt discussed in multidisciplinary rounds and is medically stable for discharge to SNF via wheelchair van. Pt accepted to to return to [facility]. Bella at [facility] confirmed [facility] will provide transport at 1515 today. EWA updated pt, RN, and pt's family - all agreeable to plan. EWA completed transfer packet, faxed discharge ppw to [facility], and updated UA/RN on transport time. A: Pt for whom a SNF is medically necessary. P: Pt to discharge to [facility] via [facility] transport at 1515 today. EWA completed transfer packet, faxed discharge ppw to [facility], and updated UA/RN on transport time. Pt and family updated and agreeable to plan. ROSANNA James
--- NOTE | 2016-11-21 16:02 | PCM.DC.MED ---
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 Recommend gadolinium enhanced MRI as outpatient for further characterization of the lesion, when renal function back to normal. # Acute kidney injury, present on admission. Improving # Acute rhabdomyolysis, present on admission, resolved. # Chronic Hypertension. Stable. # Acute Hyponatremia, not present on admission. Resolved. # Suspected acute UTI on admission. Ruled out with negative urine culture. # History of schizophrenia, stable # Elevated cardiac enzymes (Troponin), present on admission. Likely demand ischemia and amplification due to acute kidney injury. # Chronic Hyperlipidemia Consultations 1. Nephrology Procedures XRay, CTs & MRIs X-RAY CHEST ONE VIEW, PORTABLE IMPRESSION: No acute disease. Dictated by: Thom Bolton M.D. on 11/12/2016 CT BRAIN WITHOUT CONTRAST IMPRESSION: No acute intracranial process. Dictated by: Thom Bolton M.D. on 11/12/2016 MRI BRAIN WITHOUT CONTRAST IMPRESSION: 1. Small acute size subacute posterior right frontal infarct. 2. Moderate periventricular and subcortical white matter chronic microvascular ischemic changes. 3. Mild, diffuse volume loss. 4. 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 Recommend gadolinium enhanced MRI for further characterization of the lesion. Dictated by: Sharri Peters MD, PhD on 11/14/2016 MRA ANGIOGRAM HEAD WITHOUT CONTRAST IMPRESSION: Negative examination within the limitations caused by motion artifact. Dictated by: Sharri Peters MD, PhD on 11/14/2016 Cardiac Echo Impression Date of Service: 11/14/16 6763 Echocardiogram Report Interpretation Summary The left ventricle is normal in size. The ejection fraction is estimated to be 60-65%. There is no LV thrombus. The right ventricle is normal in size and function. There is moderate mitral regurgitation. There is mild tricuspid regurgitation. The right ventricular systolic pressure is estimated at 24 mmHg assuming a right atrial pressure of 3 mm Hg. Mild atherosclerotic plaque(s) in the aortic arch. Reading Physician:PM Other Diagnostics US RENAL SONOGRAM IMPRESSION: 1. No evidence of hydronephrosis. Dictated by: Preston Dotson M.D. on 11/14/2016 Brief History As noted in H&P by Dr. Sewell: Pamella Starks is a 81 year old female patient with history of well-controlled schizophrenia, hypertension, hyperlipidemia and depression who presented to the emergency department via ambulance because of generalized weakness, confusion, and a fall. Patient does not recall the events leading to the incident but her daughter reports that family members were attempting to call her this morning and she was not answering their calls. As a result, they came to visit her at her senior apartment building and found her between the bed and the nightstand. She was able to sit on the bed with great difficulty and with assistance. Daughter reports that she was unsteady, dizzy and shaky. In addition, patient was confused and unaware of what was happening. Family did not notice her slurring her words or having unilateral weakness. She thinks that she hit her head on the carpet on the floor when she fell that she was unsure. She lives by herself in an independent living facility and typically uses a cane for walking but is steady at baseline. The family also noticed that she has not taken probably about 5 days' worth of her medications. She normally has her daily medications packaged and labeled for her. Patient does not recall the last time she took her medications and is unsure if she ate today. The last time that her daughter visited her in person was about 2-3 days ago but they were able to call her yesterday with response. Family reports that she has had similar episodes of confusion in the past. This evening, she notes that she is less confused but that her upper and lower extremities are still weak. She denies numbness, tingling, muscle aches. Patient denies fevers, chills, headaches, chest pain, shortness of breath, nausea, vomiting, abdominal pain, dysuria, urinary frequency and urgency, and bowel changes. In the ED, her vital signs include blood pressure 153/72, pulse of 102, temperature 37C, and 96% O2 sat at room air. Her labs were significant for a WBC count of 17.5, B UN of 38, creatinine 1.97, troponin of 0.5, AST 831, ALC 157, CK greater than 17,000. UA reveals positive nitrites, trace leukocyte esterase, large occult blood, and 0-2 RBCs. Chest x-ray showed no acute disease. CT of the head is negative. EKG showed normal sinus rhythm with no acute ischemic changes. She was given IV fluids. Hospital Course Pamella Starks is a 81 year old female patient who has been non-compliant with her medications with history of well-controlled schizophrenia, hypertension, hyperlipidemia and depression who presented to the emergency department via ambulance because of generalized weakness, confusion and falls (she was found sitting on floor by daughter). She is being admitted for rhabdomyolysis secondary to her fall and resulting COLTON which has been slowly improving. Syncope/Fall likely secondary to frontal lobe acute/subacute infarct, unknown onset, POA - Cardiac workup was negative. - CT Head neg for acute bleeding, MR Brain stroke protocol showed frontal lobe acute/subacute infarct - Echo- EF 60-65% and details as noted above - PT/OT/ST ordered: PT recommend d/c to SNF, good rehab potential - Switched to plavix as she had a stroke while being on ASA. L Ventricle 1 cm mass on MR Brain, POA - Per notes by Dr. Kasper: "11/16- Called [facility] what kind of f/u they would recommend: Pager [phone] to page, pushed images. Will need repeat imaging with MRI w/ contrast as outpatient once COLTON resolves." Acute kidney injury, present on admission- 05/19 to [facility]. No known hx of CKD. - Initially thought to be due to pre-renal secondary to dehydration and rhabdomyolysis - Initially, was tx w/ IVF. All fluids stopped 11/14 as felt pt was now hypervolemic at prerenal component of COLTON had been addressed. - Per Nephrology, Dr. Self- pt entering recovery phase, will need close monitoring of I/O, encourage PO intake. Rhabdomyolysis, present on admission, resolved. Likely secondary to prolonged time on the floor following her fall - CK >17,000-->>[id number]->3000->631 - Discontinued fluids on 11/14, encourage PO intake. Hypertension, chronic, present on admission - Back on Atenolol - Renal dosing of Atenolol 100->25mg per pharmacy. Titrate accordingly. - Hydrochlorothiazide and Losartan stopped due to renal dysfunction. May restart at [facility] if needed. Hyponatremia- new issue, resolved. - May have been 2/2 to diuresis. Enourage PO intake. Suspected acute UTI, poa. Ruled out with negative culture. History of schizophrenia, stable - Continued aripiprazole 10 mg daily and nortriptyline 10 mg daily Elevated troponins, present on admission - No reported chest pain - Troponin was likely elevated due to COLTON Hyperlipidemia, chronic - Resume statin upon discharge By day of discharge she denies any pain or discomfort. Exam Vital Signs (Last) Date Time Temp Pulse Resp B/P Pulse Ox O2 Delivery O2 Flow Rate FiO2 11/21/16 13:25 36.8 73 18 134/74 97 Room Air Exam Alert, Ox3 Lungs: CTA bilat CV: RRR Test 11/12/16 16:48 11/12/16 17:58 11/13/16 01:28 11/13/16 10:52 Hold [place] Top Tube Received (Received) Urine Color Yellow (YELLOW) Urine Appearance Hazy (CLEAR,HAZY) Urine pH 6.5 (5.0-8.0) Urine Specific [place] 1.025 (1.003-1.035) Urine Protein 300mg/dL (NEG,TRACE) Urine Glucose (UA) 100mg/dL (NEGATIVE) Urine Ketones Tracemg/dL (NEGATIVE) Urine Occult Blood Large (NEGATIVE) Urine Nitrite Positive (NEGATIVE) Urine Bilirubin Negative (NEGATIVE) Urine Urobilinogen 1.0mg/dL (NORMAL) Urine Leukocyte Esterase Trace (NEGATIVE) Urine RBC 0-2/hpf (0-2) Urine WBC 0-5/hpf (0-5) Urine Epithelial Cells None/hpf (NONE-MOD) Urine Crystals None seen (NONE SEEN) Urine Bacteria Few/hpf (NONE-FEW) Urine Hyaline Casts None/lpf (NONE) Urine Granular Casts None seen (NONE SEEN) Urine Waxy Casts None seen (NONE SEEN) Urine Red Blood Cell Casts None seen (NONE SEEN) Urine White Blood Cell Casts None seen (NONE SEEN) Urine Mucus None seen (None Seen) Urine Trichomonas None seen (NONE SEEN) Urine Yeast None (NONE SEEN) Urinalysis Comment None Urine Culture Reflexed Indicated Hold Purple Top Tube Received (Received) Acetaminophen Level < 15.0ug/mL Rx (10-25) Hepatitis A IgM Antibody Negative (Negative) Hepatitis B Surface Antigen Negative (Negative) Hepatitis B Core IgM Antibody Negative (Negative) Hepatitis C Antibody <0.1s/co ratio (0.0-0.9) Hepatitis C Comment Comment (.) Troponin T 0.056ug/L (0.0-0.011) Test 11/14/16 08:30 11/14/16 19:52 11/17/16 04:50 11/18/16 04:56 Hemoglobin A1c 6.1% (4.8-5.6) Triglycerides Level 191mg/dL (0-149) Cholesterol Level 129mg/dL (100-199) LDL Cholesterol, Calculated 45.800mg/dL (0-99) VLDL Cholesterol 38.200mg/dL HDL Cholesterol 45mg/dL (>39) Cholesterol/HDL Ratio 2.87 (0.0-4.4) Uric Acid 11.1mg/dL (2.6-7.2) Pro-B-Type Natriuretic Peptide 6717pg/mL (0-738) Parathyroid Hormone (Intact) 226pg/mL (15-65) Phosphorus Level 6.6mg/dL (2.5-4.9) Total Creatine Kinase 631U/L (21-215) Test 11/19/16 05:10 11/20/16 05:30 11/21/16 07:55 White Blood Count 7.5th/mm3 (3.8-10.1) Red Blood Count 3.76mil/mm3 (3.90-5.20) Hemoglobin 11.3g/dL (12.0-15.6) Hematocrit 33.2% (35.0-46.0) Mean Corpuscular Volume 88.3fL (81-100) Mean Corpuscular Hemoglobin 30.1pg (27.0-35.0) Mean Corpuscular Hemoglobin Concent 34.0% (32.0-37.0) Red Cell Distribution Width 12.8% (12.3-15.4) Platelet Count 249bil/L (150-400) Neutrophils (%) (Auto) 46.3% (40-74) Lymphocytes (%) (Auto) 36.2% (14-46) Monocytes (%) (Auto) 16.2% (4-12) Eosinophils (%) (Auto) 0.9% (0-5) Basophils (%) (Auto) 0.1% (0-3) Magnesium Level 1.9mg/dL (1.6-2.6) Sodium Level 141mEq/L (134-144) Potassium Level 4.8mEq/L (3.5-5.2) Chloride Level 101mEq/L (97-108) Carbon Dioxide Level 21mmol/L (18-29) Blood Urea Nitrogen 37mg/dL (8-27) Creatinine 1.47mg/dL (0.57-1.00) Estimat Glomerular Filtration Rate 49mL/min (>59) Glucose Level 140mg/dL (60-99) Calcium Level 9.1mg/dL (8.5-10.1) Total Bilirubin 0.2mg/dL (0.0-1.2) Aspartate Amino Transf (AST/SGOT) 45U/L (0-50) Alanine Aminotransferase (ALT/SGPT) 105U/L (0-32) Alkaline Phosphatase 93U/L (25-165) Total Protein 6.4g/dL (6.4-8.4) Albumin 3.6g/dL (3.4-5.0) Discharge Medications Discharge Medications Aripiprazole (Aripiprazole) 10 Mg Tablet 10 MG PO DAILY (Reported) Atenolol (Atenolol) 25 Mg Tablet 25 MG PO DAILY Prescribed by: SEVERO KASPER MD Atorvastatin (Lipitor) 20 Mg Tablet 20 MG PO DAILY Prescribed by: MIKAL LOMAS MD Clopidogrel (Clopidogrel) 75 Mg Tablet 75 MG PO DAILY Prescribed by: SEVERO KASPER MD Felodipine ER (Felodipine ER) 10 Mg Tab.er.24h 10 MG PO DAILY (Reported) Lactulose (Lactulose) 10 Gm/15 Ml Solution 10 GM PO ACHS 2-3 times a day, titrate to 2-3 soft bowel movements daily Prescribed by: FIDELIA DHILLON, Nortriptyline (Nortriptyline) 10 Mg Capsule 10 MG PO HS (Reported) Additional med instructions - Have added new medication, Plavix. - Held Lovastatin, can resume after follow up with PCP. - Reintroduce BP meds HCTZ and Lisinopril and can increase dose of Atenolol up to 100 mg again if needed as renal function improves. Followup Plan Disposition: SNF Follow-up plan 1. Followup with primary care provider (Dr. King) in 3-7 days 2. Will need repeat MRI with contrast of brain once renal function is back to normal to assess the Left Ventricle mass. Followup with your primary care provider to set this up. Discharge Diet: Low fat, Low Sodium, Heart Healthy Discharge Activity: Other (as tolerated and per physical therapy) Patient Instructions Will need close monitoring of Intake/Output, encourage PO intake. Followup BMP in 2-3 days Follow-up Provider: Derian King MD Follow-up with PCP in: 1 week Time spent 40 min copies to: Derian King MD, Masoud Nov 21, 2016 16:02
--- NOTE | 2016-11-21 19:35 | NUR ---
Discharge Patient discharged to [facility] for rehab. Patient 's grand daughter was notified and will meet patient there and she also took belongings.
== END 2016-11-21 15:46 | DRG 65 ==
LOC: EDBD 14:21 → SED 14:21 → OSC 20:14
PROVIDERS: ADMIT Hospitalist; ATTEND Hospitalist
DX: I63.9 Cerebral infarction, unspecified (principal); M62.82 Rhabdomyolysis; N17.9 Acute kidney failure, unspecified; E87.1 Hypo-osmolality and hyponatremia; E87.2 Acidosis; N39.0 Urinary tract infection, site not specified; I10 Essential (primary) hypertension; E78.5 Hyperlipidemia, unspecified; F20.9 Schizophrenia, unspecified; Z91.14 Patient's other noncompliance with medication regimen; E83.42 Hypomagnesemia

== ENCOUNTER 2016-11-28 10:49 | Emergency (ER) | payer MEDICARE ==
[~2016-11-28] VITALS: Ht 149.9 cm; Wt 77.7 kg
[~2016-11-28 10:49] MED LIST changes: +ARIP10TA16 PO; +ATEN25TA PO; +ATOR20TA PO; -CEPH-512 PO; +CLOP75TA28 PO; +FELO10TA3 PO; +NORT10CA PO
[2016-11-28 10:54] VITALS: BP 139/63; PULSE 93; RESP 22; O2SAT 99
--- NOTE | 2016-11-28 10:56 | ED.REPORT ---
HPI-General Illness Date of Service Nov 28, 2016 ED Provider: Onofre Dejesus DO Pt is a 81 y/o female with a history of HTN, HLD, recent COLTON, who presents to the ED via EMS due to hyponatremia (Dh=646) found on labs taken a few days ago. She states that she drinks 3-4 cups of ice tea per day. She feels generally well right now. She is completely asymptomatic and denies nausea, vomiting, abdominal pain, dysuria, chills, fever, cough, dizziness, lightheadedness, headache, or recent trauma. Pt has been staying at [facility] for rehabilitation after being recently discharged from [facility] due to acute kidney injury, subacute frontal infarct, acute rhabdomyolysis, acute hyponatremia, suspected acute UTI. Medication list indicates she takes nortriptyline. She is not on a fluid restriction diet. Nursing Notes Stated Complaint: LOW SODIUM Chief Complaint: General Complaint Nursing Notes Reviewed: Yes Allergies: Coded Allergies: No Known Allergies (Verified , 04/28/06) Scheduled Aripiprazole (Aripiprazole) 10 Mg Tablet 10 MG PO DAILY Atenolol (Atenolol) 25 Mg Tablet 25 MG PO DAILY Atorvastatin (Lipitor) 20 Mg Tablet 20 MG PO DAILY Clopidogrel (Clopidogrel) 75 Mg Tablet 75 MG PO DAILY Felodipine ER (Felodipine ER) 10 Mg Tab.er.24h 10 MG PO DAILY Lactulose (Lactulose) 10 Gm/15 Ml Solution 10 GM PO ACHS 2-3 times a day, titrate to 2-3 soft bowel movements daily Nortriptyline (Nortriptyline) 10 Mg Capsule 10 MG PO HS General Time Seen by MD: 10:51 Chief Complaint Other (Hyponatremia) Hx Obtained From: Patient, EMS Arrived By: Ambulance Sudden in Onset?: No Onset Occurred: Onset unknown Symptom Duration: Since onset Severity: Current: No pain currently Severity: Maximum: No pain Recent Healthcare: Recent doctor visit, Recent hospitalization Similar Sx Previous: Yes Past Medical History Past Medical History Schizophrenia - well controlled hx of cute kidney injury hx of rhabdomyolysis hx of hyponatremia Reports: Hyperlipidemia, Hypertension Reports: Depression Past Surgical History recent cataract surgery Smoking History Never Smoker Social History Other Social History: Good social support, Lives in detention, Local resident Ambulatory Status Cane Review of Systems Full Review of Systems Constitutional: Denies: Chills, Fever Respiratory: Denies: Non-productive cough, Prod cough, clear GI: Denies: Abdominal pain, Nausea, Vomiting Female: Denies: Dysuria Neurologic: Denies: Dizziness, Headache, Lightheaded Complete sys rev & neg: except as marked. Physical Exam Vital Signs Vital Signs Date Time Temp Pulse Resp B/P Pulse Ox O2 Delivery O2 Flow Rate FiO2 11/28/16 10:54 36.5 93 22 139/63 99 Room Air Initial VS: Reviewed Head / Eyes: Atraumatic, Normocephalic Abdomen / GI: Soft, Non-tender Extremities: Vascular intact, Neuro intact Neurologic: Alert, Oriented, Nonfocal Psychiatric: Mood/affect normal, Behavior normal, Normal thought content General/Constitutional: Awake, Alert, No acute distress, Cooperative, Not toxic appearing Appearance / Presentation: Positive: Obese ENT: Airway patent, Mucous membranes moist Lips cracked Neck: Supple, Full range of motion, No JVD Respiratory / Chest: Breath sounds NL, Breath sounds = bilat, No respiratory distress, No rales, No rhonchi, No wheezing Cardiovascular: Heart rate NL, Regular rhythm, Heart sounds NL, No murmurs Lower Ext Edema: Positive: Bilateral 2+ Skin: Warm, Dry Poor skin turgor Interpretation & Diagnostics Lab Results Interpretation Result Diagram: 11/28/16 1101 11/28/16 1101 Test 11/28/16 11:01 11/28/16 11:51 11/28/16 12:29 White Blood Count 6.6th/mm3 (3.8-10.1) Red Blood Count 3.59mil/mm3 (3.90-5.20) Hemoglobin 10.9g/dL (12.0-15.6) Hematocrit 32.4% (35.0-46.0) Mean Corpuscular Volume 90.3fL (81-100) Mean Corpuscular Hemoglobin 30.4pg (27.0-35.0) Mean Corpuscular Hemoglobin Concent 33.6% (32.0-37.0) Red Cell Distribution Width 13.1% (12.3-15.4) Platelet Count 257bil/L (150-400) Neutrophils (%) (Auto) 66.0% (40-74) Lymphocytes (%) (Auto) 17.8% (14-46) Monocytes (%) (Auto) 14.3% (4-12) Eosinophils (%) (Auto) 1.7% (0-5) Basophils (%) (Auto) 0.2% (0-3) Sodium Level 136mEq/L (134-144) Potassium Level 4.2mEq/L (3.5-5.2) Chloride Level 98mEq/L (97-108) Carbon Dioxide Level 23mmol/L (18-29) Blood Urea Nitrogen 19mg/dL (8-27) Creatinine 0.99mg/dL (0.57-1.00) Estimat Glomerular Filtration Rate 78mL/min (>59) Glucose Level 135mg/dL (60-99) Calcium Level 8.9mg/dL (8.5-10.1) Magnesium Level 1.5mg/dL (1.6-2.6) Total Bilirubin 0.3mg/dL (0.0-1.2) Aspartate Amino Transf (AST/SGOT) 25U/L (0-50) Alanine Aminotransferase (ALT/SGPT) 68U/L (0-32) Alkaline Phosphatase 146U/L (25-165) Total Protein 7.3g/dL (6.4-8.4) Albumin 3.6g/dL (3.4-5.0) Osmolality 290 (275-300) Total Creatine Kinase 64U/L (21-215) Urine Color Straw (YELLOW) Urine Appearance Clear (CLEAR,HAZY) Urine pH 7.0 (5.0-8.0) Urine Specific [place] 1.005 (1.003-1.035) Urine Protein Negativemg/dL (NEG,TRACE) Urine Glucose (UA) Negativemg/dL (NEGATIVE) Urine Ketones Negativemg/dL (NEGATIVE) Urine Occult Blood Trace (NEGATIVE) Urine Nitrite Negative (NEGATIVE) Urine Bilirubin Negative (NEGATIVE) Urine Urobilinogen Normalmg/dL (NORMAL) Urine Leukocyte Esterase Negative (NEGATIVE) Urine RBC 0-2/hpf (0-2) Urine WBC 0-5/hpf (0-5) Urine Epithelial Cells None/hpf (NONE-MOD) Urine Crystals None seen (NONE SEEN) Urine Bacteria None/hpf (NONE-FEW) Urine Hyaline Casts None/lpf (NONE) Urine Granular Casts None seen (NONE SEEN) Urine Waxy Casts None seen (NONE SEEN) Urine Red Blood Cell Casts None seen (NONE SEEN) Urine White Blood Cell Casts None seen (NONE SEEN) Urine Mucus None seen (None Seen) Urine Trichomonas None seen (NONE SEEN) Urine Yeast None (NONE SEEN) Urinalysis Comment None Urine Culture Reflexed Not indicated ECG Interpretation ECG Interpretation: Sinus rhythm, rate 89 Time: 11:19 Interpreted by: ED physician Normal ECG Interpretation: No acute ischemic changes X-Ray Chest Interpretation Chest Xray Interpretation: IMPRESSION: Mildly reduced inspiratory volume bilaterally, no pneumonia found. Dictated by: Maicol Ricardo M.D. on 11/28/2016 at 12:35 Approved by: Maicol Ricardo M.D. on 11/28/2016 at 12:35 View: Portable, 1 view Interpretation / Wet Read by: Interpret - Radiologist Re-Eval/Medical Decision Med Decision/Clinical Course Labs are unremarkable, patient is asymptomatic. Will plan to discharge. Return precautions given. of note, the patient is NOT hyponatremic and has normal kidney function normal urinalysis and normal serum osmolality. However, I could not find a reasonable discharge diagnosis for an asymptomatic patient with normal laboratory findings. Source of Hx: Old records Time of Eval: 12:43 Patient Status: Condition improved Re-Evaluation/Progress Note: Patient rechecked. Discussed plan for discharge. Patient understands and agrees with plan. F/U instructions and RTER warnings given. All questions addressed at this time. Counseled Regarding: Diagnosis, Lab results, Need for follow-up, When/why to return to ED Discharge & Departure Primary Impression: Hyponatremia Disposition: Home Discharge Condition All VS Reviewed: Yes Condition: Stable Additional Instructions: Your sodium, potassium, kidney function, urinalysis were all normal today. Follow-up with Dr. King as planned. Return to the ER as needed. Referrals: Derian King MD (PCP) Scribe Attestation Portions of this note were transcribed by Lula Dhillon and Jordan Jeter. I, Dr. Dejesus, personally performed the history, physical exam and medical decision-making; I reviewed and confirmed the accuracy of the information in the transcribed note. copies to: Derian King MDOnofre Reyes Nov 28, 2016 10:55 Lula Dhillon Nov 28, 2016 11:10 JORDAN JETER Nov 28, 2016 12:35
[2016-11-28 12:02] LABS: BASOPHILS % (AUTO) 0.2 % (0-3); EOSINOPHILS % (AUTO) 1.7 % (0-5); MONOCYTES % (AUTO) 14.3 % (4-12); Mean Corpuscular Hemoglobin 30.4 pg (27.0-35.0); Mean Corpuscular Volume 90.3 fL (81-100); Platelet Count 257 bil/L (150-400)
[2016-11-28 12:18] LABS: Magnesium 1.5 mg/dL (1.6-2.6)
[2016-11-28 12:37] LABS: Creatine Kinase 64 U/L (21-215)
--- NOTE | 2016-11-28 12:37 | DRSVH ---
PROCEDURE: X-RAY CHEST ONE VIEW, PORTABLE ([id number]) INDICATIONS: weakness hyponatremia TECHNIQUE: One view of the chest was acquired. COMPARISON: [facility], CR, XR CHEST 1VW (PORTABLE), 11/12/2016, 16:25. [facility], CR, XR CHEST 1VW (PORTABLE), 10/27/2015, 12:02. FINDINGS: Surgical changes and devices: None. Lungs and pleura: No pleural effusions or pneumothorax. Lungs are clear. Mediastinum: Mediastinal contours appear normal. Heart size is normal. Bones and chest wall: No suspicious bony lesions. Overlying soft tissues appear unremarkable. IMPRESSION: Mildly reduced inspiratory volume bilaterally, no pneumonia found. Dictated by: Maicol Ricardo M.D. on 11/28/2016 at 12:35 Approved by: Maicol Ricardo M.D. on 11/28/2016 at 12:35
[2016-11-28 12:55] LABS: APPEARANCE,URINE CLEAR (CLEAR,HAZY); COLOR,URINE STRAW (YELLOW)
[2016-11-28 12:56] LABS: OCCULT BLOOD,URINE TRACE (NEGATIVE); UROBILINOGEN,URINE NORMAL (NORMAL)
[2016-11-28 13:56] VITALS: BP 121/56; PULSE 88; RESP 17; O2SAT 99
== END 2016-11-28 13:58 | disposition home or self-care (01) ==
LOC: EDBD 10:49 → SED 10:49 → EDUNIT# 10:49 → SED 13:58
DX: E87.1 Hypo-osmolality and hyponatremia (principal); I10 Essential (primary) hypertension; E78.5 Hyperlipidemia, unspecified; N17.9 Acute kidney failure, unspecified; Z87.39 Personal history of other diseases of the musculoskeletal system and connective tissue